=== PATIENT | female | born 1935 | race Caucasian/White ===

== ENCOUNTER 2018-03-11 10:58 | Inpatient (IN) | payer OTHER ==
--- NOTE | 2018-03-11 11:26 | PDOC ---
History of Present Illness - General Chief Complaint: Injury Stated Complaint: INJURY,FALL Time Seen by Provider: 03/11/18 11:26 - History of Present Illness Initial Comments: 03/11/18 12:20 Ms. Quiroga is an 82 yo female w/ no pmh who presents for evaluation of abdominal pain for the last day. She reports she had a mechanical fall yesterday (confirmed by daughter who is with her) and fell onto a chair; making contact with her RLQ. She denies any LOC or head injury. Ms. Quiroga was initially ok but reports she required tylenol before bed and pain has increased today; she also does not have any appetite now and reports this is unusual. The patient denies chest pain, shortness of breath, headache and dizziness. Denies fever, chills, nausea, vomit, diarrhea and constipation. Denies dysuria, frequency, urgency and hematuria. Allergies: NKDA Past History - Past Medical History Allergies/Adverse Reactions: Allergies Allergy/AdvReac Type Severity Reaction Status Date / Time No Known Allergies Allergy Verified 03/11/18 10:59 Home Medications: Ambulatory Orders NK [No Known Home Medication] 03/11/18 COPD: No - Surgical History Appendectomy: Yes - Suicide/Smoking/Psychosocial Hx Smoking History: Never smoked Have you smoked in the past 12 months: No Information on smoking cessation initiated: No Hx Alcohol Use: No Drug/Substance Use Hx: No Substance Use Type: None Review of Systems - Review of Systems Comments:: 03/11/18 12:25 GENERAL/CONSTITUTIONAL: No fever or chills. No weakness. HEAD, EYES, EARS, NOSE AND THROAT: No change in vision. No ear pain or discharge. No sore throat. CARDIOVASCULAR: No chest pain or shortness of breath RESPIRATORY: No cough, wheezing, or hemoptysis. GASTROINTESTINAL: +RLQ pain radiating to R flank. No nausea, vomiting, diarrhea or constipation. GENITOURINARY: No dysuria, frequency, or change in urination. MUSCULOSKELETAL: No joint or muscle swelling or pain. No neck or back pain. SKIN: No rash NEUROLOGIC: No headache, vertigo, loss of consciousness, or change in strength/ sensation. ENDOCRINE: No increased thirst. No abnormal weight change HEMATOLOGIC/LYMPHATIC: No anemia, easy bleeding, or history of blood clots. ALLERGIC/IMMUNOLOGIC: No hives or skin allergy. *Physical Exam - Vital Signs Last Vital Signs Temp Pulse Resp BP Pulse Ox 98.6 F 91 H 18 160/100 100 03/11/18 11:00 03/11/18 11:00 03/11/18 11:00 03/11/18 11:00 03/11/18 11:00 - Physical Exam Comments: 03/11/18 12:26 GENERAL: Awake, alert, and fully oriented, in no acute distress HEAD: No signs of trauma, normocephalic, atraumatic EYES: PERRLA, EOMI, sclera anicteric, conjunctiva clear ENT: Auricles normal inspection, hearing grossly normal, nares patent, oropharynx clear without exudates. Moist mucosa NECK: Normal ROM, supple, no lymphadenopathy, JVD, or masses LUNGS: No distress, speaks full sentences, clear to auscultation bilaterally HEART: Regular rate and rhythm, normal S1 and S2, no murmurs, rubs or gallops, peripheral pulses normal and equal bilaterally. ABDOMEN: +RLQ and flank TTP. Soft, normoactive bowel sounds. No guarding, no rebound. No masses EXTREMITIES: Normal inspection, Normal range of motion, no edema. No clubbing or cyanosis. NEUROLOGICAL: Cranial nerves II through XII grossly intact. Normal speech, normal gait, no focal sensorimotor deficits SKIN: Warm, Dry, normal turgor, no rashes or lesions noted. ED Treatment Course - LABORATORY CBC & Chemistry Diagram: 03/11/18 17:48 03/11/18 12:57 Medical Decision Making - Medical Decision Making 03/11/18 12:27 Ms. Quiroga is an 82 yo female w/ no pmh who presents for evaluation post fall. CT abdomen/pelvis sent for evaluation to evaluate for acute process. Tylenol / zofran given for symptomatic relief. 03/11/18 17:27 Patient reporting relief from pain with 2mg morphine. Labs significant for WBC of 15.9. Discussed with radiology who described possible R adrenal hematoma with hemorrhage in hepatorenal space. Surgery consulted. 03/11/18 17:39 Discussed patient with General Surgery (Dr. Escalante) who will evaluate in AM and would like patient admitted to hospitalist. PT/INR, PTT, Repeat CBC, lactate sent for further evaluation. Inpatient team paged for admission. 03/11/18 19:12 Patient admitted to hospital and ICU per Gen Surg request. Patient noted to have EKG suspicious for elevation in AVR w/ reciprical changes. Discussed with cardiology (Michele) who will evaluate. 03/11/18 19:14 Patient admitted for further evaluation. *DC/Admit/Observation/Transfer Diagnosis at time of Disposition: Hemoperitoneum - Discharge Dispostion Decision to Admit order: Yes - Referrals - Patient Instructions - Post Discharge Activity
[2018-03-11] MEDS ORDERED: ACETAMINOPHEN 500 MG TABLET (FP) PO ONE (11:40)
[2018-03-11] MEDS ORDERED: ONDANSETRON *ODT* 4 MG TABLET SL ONE (11:46)
[2018-03-11] MEDS ORDERED: ONDANSETRON *ODT* 4 MG TABLET ONE (11:52)
[2018-03-11 12:11] LABS: BASO % 0.3 % (0-2.0); HEMATOCRIT 45.9 % (32.4-45.2); HEMOGLOBIN 16.4 GM/dL (10.7-15.3); LYMPH % 5.6 % (8-40); MCH 32.1 pg (25.7-33.7); MCHC 35.7 g/dl (32.0-36.0); MEAN PLT VOLUME 10.2 fl (7.5-11.1); MONO % 5.5 % (3.8-10.2); NEUT % 88.6 % (42.8-82.8); PLATELET COUNT 150 K/MM3 (134-434); RDW 14.3 % (11.6-15.6); WHITE BLOOD COUNT 15.9 K/mm3 (4.0-10.0)
[2018-03-11] MEDS ORDERED: ACETAMINOPHEN 500 MG TABLET (FP) ONE (12:14)
[2018-03-11] MEDS ORDERED: morphine CARPU-JECT 2 MG/1 ML DISP.SYRIN IVPUSH ONE (13:36)
[2018-03-11] MEDS ORDERED: ONDANSETRON 4 MG/2 ML VIAL IVPUSH ONE (13:37)
[2018-03-11] MEDS ORDERED: ONDANSETRON 4 MG/2 ML VIAL ONE (13:39)
[2018-03-11] MEDS ORDERED: morphine SULFATE 4 MG/ML VIAL ONE (13:39)
[2018-03-11 13:46] LABS: ALBUMIN 4.5 g/dl (3.4-5.0); ALK PHOS 111 U/L (45-117); ANION GAP 16 (8-16); BILIRUBIN,TOTAL 1.1 mg/dL (0.2-1.0); BLOOD UREA NITROGEN 12 mg/dL (7-18); CALCIUM 9.7 mg/dL (8.5-10.1); CHLORIDE 97 mmol/L (98-107); CO2 25 mmol/L (21-32); CREATININE 0.7 mg/dL (0.55-1.02); GLUCOSE,RANDOM 130 mg/dL (74-106); POTASSIUM 4.1 mmol/L (3.5-5.1); SGOT/AST 46 U/L (15-37); SGPT/ALT 15 U/L (12-78); SODIUM 138 mmol/L (136-145); TOT PROT 8.1 g/dl (6.4-8.2)
--- NOTE | 2018-03-11 14:51 | PDOC ---
Attending Attestation - Medical Decision Making 03/11/18 17:44 EXAM: CT abdomen and pelvis with intravenous contrast HISTORY: Fall. Abdominal pain FINDINGS: There are mild atelectatic changes at the lung bases There is complex fluid in the hepatorenal space compatible with blood with hematoma versus mass of the right adrenal gland measuring 3.8 x 2.7 cm axially There are bilateral subcentimeter renal cortical hypodensities, likely cysts The upper abdominal visceral organs are otherwise unremarkable The gallbladder is surgically absent There is moderate fecal retention in the colon. Otherwise no gross abnormalities of the unenhanced small bowel and colon. The appendix is normal The urinary bladder is moderately distended, normal in contour without thickening. Correlate clinically to exclude bladder outlet obstruction Atrophic or absent uterus No intra-abdominal free air No acute osseous abnormalities Reported by: Teodoro Miranda MD <Jose E Norman - Last Filed: 03/11/18 17:44> - Resident Resident Name: Bobby Lopez - ED Attending Attestation I have performed the following: I have examined & evaluated the patient, The case was reviewed & discussed with the resident, I agree w/resident's findings & plan, Exceptions are as noted - HPI HPI: 03/11/18 14:34 "The patient is a 82 year old female, with no significant past medical history, who presents to the emergency department s/p mechanical fall yesterday. Pt states she fell onto her R side against the back of a chair. She denies any significant pain yesterday but today presents with worsening pain to the right lower quadrant abdomen. She reports taking Tylenol with minimal relief last night. She reports associated nausea without vomiting. She reports being able to ambulate post fall. Denies headstrike. Denies neck pain. She denies any loss of consciousness. She denies recent fevers, chills, headache or dizziness. She denies recent vomit, diarrhea or constipation. She denies recent dysuria, frequency, urgency or hematuria. She denies recent chest pain or shortness of breath. Allergies: NKA Past surgical history: None reported. Social history: Nonsmoker. Denies EtOH use and recreational drug use. Primary Care Physician: Dr. CmPhilip - Physicial Exam PE: 03/11/18 16:05 "GENERAL: Awake, alert, and fully oriented, in no acute distress. HEAD: No signs of trauma EYES: PERRLA, EOMI, sclera anicteric, conjunctiva clear ENT: Auricles normal inspection, hearing grossly normal, nares patent, oropharynx clear without exudates. Moist mucosa NECK: Nontender, no stepoffs, Normal ROM, supple, no lymphadenopathy, JVD, or masses LUNGS: Breath sounds equal, clear to auscultation bilaterally. No wheezes, and no crackles HEART: Regular rate and rhythm, normal S1 and S2, no murmurs, rubs or gallops ABDOMEN: + ecchymosis and tenderness to RLQ EXTREMITIES: Normal range of motion, no edema. No clubbing or cyanosis. No cords, erythema, or tenderness NEUROLOGICAL: Cranial nerves II through XII intact. 5/5 strength and sensation in all extremities, Normal speech, normal gait, normal cerebellar function SKIN: Warm, Dry, normal turgor, no rashes or lesions noted. " - Medical Decision Making 03/11/18 16:05 82 F with pain and bruising to RLQ after falling yesterday. Will need to r/o hemoperitoneum. Pt with no other signs of traumatic injury. - Labs - CTAP 03/11/18 17:29 CT shows blood in hepatorenal recess with hematoma to R adrenal gland. Repeat CBC and coags ordered. Surgery consulted for hemoperitoneum Pt admitted to hospitalist. 03/11/18 18:[address] Escalante, who recommends serial CBCs and ICU admission for close monitoring. No indication for OR at this time. Repeat CBC with 0.5u drop in Hb (prior to any fluids) Case discussed with Dr. Ching, who has accepted pt to ICU. 03/11/18 19:17 EKG obtained, revealing sub-mm ST elevation in aVR with depressions in lateral leads. Pt reassessed - denies ever having CP or SOB. Cardiac enzymes sent. Cards consulted. Holding aspirin and AC at this time 2/2 hemoperitoneum Admitting team informed of EKG at this time. <Aj Gallegos - Last Filed: 03/17/18 07:12> Attestations - Attestations 03/11/18 17:45 Documentation prepared by Jose E Norman, acting as general medical practitioner for Aj Gallegos MD. <Jose E Norman - Last Filed: 03/11/18 17:44>
[2018-03-11] MEDS ORDERED: SODIUM CHLORIDE 1,000 ML IV STA (17:40)
[2018-03-11 17:55] LABS: BASO % 0.3 % (0-2.0); HEMATOCRIT 46.1 % (32.4-45.2); HEMOGLOBIN 15.9 GM/dL (10.7-15.3); LYMPH % 6.7 % (8-40); MCH 31.5 pg (25.7-33.7); MCHC 34.4 g/dl (32.0-36.0); MEAN CELL VOLUME 91.5 fl (80-96); MEAN PLT VOLUME 10.9 fl (7.5-11.1); MONO % 6.9 % (3.8-10.2); NEUT % 86.1 % (42.8-82.8); PLATELET COUNT 127 K/MM3 (134-434); RBC 5.04 M/mm3 (3.60-5.2); RDW 13.9 % (11.6-15.6); WHITE BLOOD COUNT 16.7 K/mm3 (4.0-10.0)
[2018-03-11 18:09] LABS: INR 1.08 (0.82-1.09); PROTHROMBIN TIME (PATIENT) 12.2 SEC (9.7-13.0)
[2018-03-11 18:11] LABS: ACTIVATED PTT 29.6 SECONDS (26.9-34.4)
--- NOTE | 2018-03-11 18:47 | PN ---
Teaching Attending Note Name of Resident: Jasmyn Garcia ATTENDING PHYSICIAN STATEMENT I saw and evaluated the patient. I reviewed the resident's note and discussed the case with the resident. I agree with the resident's findings and plan as documented with exceptions below. SUBJECTIVE: 82 yof with no significant PMHx was walking with grand daughter when tripped and high right side of her abdomen to the cough. had been having right sided flank and right lower abdomen, dull, intermittent. Today had minimal po intake and was weak so was brought to the ED. Denies any dizziness, chest pain, palpitaitons, dyspnea, arm or jaw pain, urinary symptoms, blood in urine, bloody bowels or new concerns. currently with mild right flank and right upper abdomen discomfort but other unremarkable. OBJECTIVE: Vital Signs Period Temp Pulse Resp BP Sys/Horton Pulse Ox Last 24 Hr 98.1 F-98.6 F 77-91 17-18 160-194/78-100 98-100 Intake & Output 03/08/18 03/09/18 03/10/18 03/11/18 23:59 23:59 23:59 23:59 Weight 145 lb GENERAL: Awake, alert, and fully oriented, in no acute distress. HEAD: Normal with no signs of trauma. EYES: Pupils equal, round and reactive to light, extraocular movements intact, sclera anicteric, conjunctiva clear. No lid lag. EARS, NOSE, THROAT: Ears normal, nares patent, oropharynx clear without exudates. Moist mucous membranes. NECK: soft supple, no JVD LUNGS: Breath sounds equal, clear to auscultation bilaterally. No wheezes, and no crackles. No accessory muscle use. HEART: S1S2 regular ABDOMEN: Soft, tenderness in right upper abdomen and right CVA tenderness, no voluntary or involuntary guarding or rigidity, positive bowel sounds MUSCULOSKELETAL: Normal range of motion at all joints. No bony deformities or tenderness. No CVA tenderness. UPPER EXTREMITIES: 2+ pulses, warm, well-perfused. No cyanosis. No clubbing. No peripheral edema. LOWER EXTREMITIES: 2+ pulses, warm, well-perfused. No calf tenderness. No peripheral edema. NEUROLOGICAL: Cranial nerves II-XII intact. Normal speech. PSYCHIATRIC: Cooperative. Good eye contact. Appropriate mood and affect. SKIN: Warm, dry, normal turgor, no rashes or lesions noted, normal capillary refill. Home Medication List Medication Instructions Recorded Confirmed Type NK [No Known Home Medication] 03/11/18 03/11/18 History Active Medications Generic Name Dose Route Start Last Admin Trade Name Papito PRN Reason Stop Dose Admin Chlorhexidine Gluconate 1 applic 03/11/18 22:00 Hibiclens For Decolonization - TP HS SANIA Mupirocin 1 applic 03/11/18 22:00 Bactroban Ointment (For Decolonization) - NS 03/16/18 21:59 BID SANIA Laboratory Results - last 24 hr 03/11/18 03/11/18 03/11/18 12:00 12:00 12:00 WBC 15.9 H RBC 5.10 Hgb 16.4 H Hct 45.9 H MCV 90.0 MCH 32.1 MCHC 35.7 RDW 14.3 Plt Count 150 MPV 10.2 Neutrophils % 88.6 H Lymphocytes % 5.6 L Monocytes % 5.5 Eosinophils % 0.0 Basophils % 0.3 PT with INR INR PTT (Actin FS) Sodium Cancelled Potassium Cancelled Chloride Cancelled Carbon Dioxide Cancelled Anion Gap Cancelled BUN Cancelled Creatinine Cancelled Creat Clearance w eGFR Cancelled Random Glucose Cancelled Calcium Cancelled Total Bilirubin Cancelled AST Cancelled ALT Cancelled Alkaline Phosphatase Cancelled Total Protein Cancelled Albumin Cancelled Lipase Blood Type Cancelled Antibody Screen Cancelled 03/11/18 03/11/18 03/11/18 12:43 12:57 12:57 WBC RBC Hgb Hct MCV MCH MCHC RDW Plt Count MPV Neutrophils % Lymphocytes % Monocytes % Eosinophils % Basophils % PT with INR INR PTT (Actin FS) Sodium 138 Potassium 4.1 Chloride 97 L Carbon Dioxide 25 Anion Gap 16 BUN 12 Creatinine 0.7 Creat Clearance w eGFR > 60 Random Glucose 130 H Calcium 9.7 Total Bilirubin 1.1 H AST 46 H ALT 15 Alkaline Phosphatase 111 Total Protein 8.1 Albumin 4.5 Lipase 95 Blood Type O POSITIVE Antibody Screen Negative 03/11/18 03/11/18 03/11/18 15:34 17:48 17:48 WBC 16.7 H RBC 5.04 Hgb 15.9 H Hct 46.1 H MCV 91.5 MCH 31.5 MCHC 34.4 RDW 13.9 Plt Count 127 L MPV 10.9 Neutrophils % 86.1 H Lymphocytes % 6.7 L Monocytes % 6.9 Eosinophils % 0.0 Basophils % 0.3 PT with INR 12.20 INR 1.08 PTT (Actin FS) 29.6 Sodium Potassium Chloride Carbon Dioxide Anion Gap BUN Creatinine Creat Clearance w eGFR Random Glucose Calcium Total Bilirubin AST ALT Alkaline Phosphatase Total Protein Albumin Lipase Blood Type O POSITIVE Antibody Screen CT A/P- read per ED FINDINGS: There are mild atelectatic changes at the lung bases There is complex fluid in the hepatorenal space compatible with blood with hematoma versus mass of the right adrenal gland measuring 3.8 x 2.7 cm axially There are bilateral subcentimeter renal cortical hypodensities, likely cysts The upper abdominal visceral organs are otherwise unremarkable The gallbladder is surgically absent There is moderate fecal retention in the colon. Otherwise no gross abnormalities of the unenhanced small bowel and colon. The appendix is normal The urinary bladder is moderately distended, normal in contour without thickening. Correlate clinically to exclude bladder outlet obstruction Atrophic or absent uterus No intra-abdominal free air No acute osseous abnormalities EKG NSR, QS in V1-V2, ST depressions in V3-V6, ASSESSMENT AND PLAN: 82 yof with traumatic Right adrenal hematoma vs mass of adrenal gland and hypertensive urgency. -Likely traumatic right adrenal hematoma, low suspcion for adrenal mass -Hypertensive urgency -Abnormal EKG Plan: Surgery consulted with Dr. Escalante, recommend ICU monitoring. Serial abdominal exams. repeat h/h later today. Monitor hemodynamics. Follow up official CT A/P read. Suspect underlying undiagnosed HTN, now with pain. Pain control with low dose morphine and labetalol prn. No prior EKG, patient with no chest pain or concerning symptoms. Check cardiac enzymes. check 2D echo. cardiology input based on clinical course. DVTPPx with SCDs Plan discussed with patient and grand daughter in detail, all questions answered. total critical care time spent 60 min.
--- NOTE | 2018-03-11 19:12 | CON.CARD ---
Consult Consult Specialty:: Cardiology Reason for Consultation:: s/p fall positive tnis - History of Present Illness History of Present Illness: Ms. Quiroga is an 82 yo female w/ no pmh who presents for evaluation of abdominal pain for the last day. She reports she had a mechanical fall yesterday (confirmed by daughter who is with her) and fell onto a chair; making contact with her RLQ. She denies any LOC or head injury. Ms. Quiroga was initially ok but reports she required tylenol before bed and pain has increased today; she also does not have any appetite now and reports this is unusual. The patient denies chest pain, shortness of breath, headache and dizziness. Denies fever, chills, nausea, vomit, diarrhea and constipation. Denies dysuria, frequency, urgency and hematuria. Allergies: NKDA 82 abraham with no significant PMHx has no PCP and takes no home meds who was brought in by granddaughter with c/o increasing rt abd pain after a mechanical fall at home. As per family pt lost balance at home and hit her rt flank on couch. There was no report of LOC, dizziness, lightheadedness, chest pain, SOB, fever, chills. No head trauma. The patient then complained of intermittent sharp pain right sided pain radiating to the back, 6/10 which was relieved by tylenol. Pt was brought in the next day with worsening abd pain and loss of appetite. In the ED T 98.6, HR 91, RR 18 BP 160/100, O2 sat 100% 0n room air. She had two small episodes of non bilious non bloody emesis. Labs notable for WBC 16.7,H/H 15.9/46.1, trop0.5->0.68, lactate 2.[address] depressions in V3-V6. CT abd pelvis preliminary read c/f fluid collection vs mass near rt adrenal. Surgery and cardiology was consulted. Recommended ICU monitoring for intra-abd bleed and ACS. Pt was transferred to ICU. In the ICU A+Ox3, HR 69, BP 178/80, O2sat 97% on room air. C/o Rt chest pain and Rt flank pain 5/10 relieved by Morphine IV. No bruising, no abd tenderness or mass noted on exam. No c/o abd pain. Granddaughter states pt lives with her, has some memory loss but is independent of ADLs. - History Source History Provided By: Patient, Medical Record - Alcohol/Substance Use Hx Alcohol Use: No - Smoking History Smoking history: Never smoked Have you smoked in the past 12 months: No Home Medications - Allergies Allergies/Adverse Reactions: Allergies Allergy/AdvReac Type Severity Reaction Status Date / Time No Known Allergies Allergy Verified 03/11/18 10:59 - Home Medications Home Medications: Ambulatory Orders NK [No Known Home Medication] 03/11/18 Review of Systems - Review of Systems Constitutional: reports: No Symptoms Eyes: reports: No Symptoms HENT: reports: No Symptoms Neck: reports: No Symptoms Cardiovascular: reports: No Symptoms Gastrointestinal: reports: Abdominal Pain Genitourinary: reports: No Symptoms Breasts: reports: No Symptoms Reported Musculoskeletal: reports: No Symptoms Integumentary: reports: No Symptoms Neurological: reports: No Symptoms Endocrine: reports: No Symptoms Hematology/Lymphatic: reports: No Symptoms Psychiatric: reports: No Symptoms Vital Signs: Vital Signs Temperature 98.1 F 03/11/18 16:59 Pulse Rate 78 03/11/18 16:59 Respiratory Rate 17 03/11/18 16:59 Blood Pressure 177/78 03/11/18 16:59 O2 Sat by Pulse Oximetry (%) 98 03/11/18 16:59 Constitutional: Yes: Well Nourished, No Distress, Calm Eyes: Yes: WNL, Conjunctiva Clear, EOM Intact HENT: Yes: WNL, Atraumatic, Normocephalic Neck: Yes: WNL, Supple, Trachea Midline Respiratory: Yes: WNL, Regular, CTA Bilaterally Gastrointestinal: Yes: WNL, Normal Bowel Sounds Renal/: Yes: WNL Cardiovascular: Yes: WNL, Regular Rate and Rhythm Musculoskeletal: Yes: WNL Extremities: Yes: WNL Integumentary: Yes: WNL Neurological: Yes: WNL, Alert, Oriented ...Motor Strength: WNL Psychiatric: Yes: WNL, Alert, Oriented - Other Data Labs, Other Data: CBC, BMP 03/11/18 17:48 03/11/18 12:57 INR, PTT INR 1.08 (0.82-1.09) 03/11/18 17:48 Imaging - Results Chest X-ray: Pending EKG: Image Reviewed (sr inf lat st depressions) Problem List - Problems (1) Elevated troponin Code(s): R74.8 - ABNORMAL LEVELS OF OTHER SERUM ENZYMES (2) Fall from ground level Code(s): W18.30XA - FALL ON SAME LEVEL, UNSPECIFIED, INITIAL ENCOUNTER (3) Hemoperitoneum Code(s): K66.1 - HEMOPERITONEUM (4) Memory impairment Code(s): R41.3 - OTHER AMNESIA Assessment/Plan adrenal hematoma s/p trauma r/o retroperitoneal bleed lactic acidosis abn ekg ? LVH hypertensive heart ds vs ischemia mildly elevated tnis no cp htn plan f/u ekg icu monitoring bb bp control cc time spent 70 min
[2018-03-11] MEDS ORDERED: METOPROLOL TARTRATE 5 MG/5 ML VIAL IVPUSH PRN (19:21)
--- NOTE | 2018-03-11 20:05 | HP ---
CHIEF COMPLAINT: abdominal pain PCP: None HISTORY OF PRESENT ILLNESS: The patient is a 82 year old female with no significant PMH who presented to the hospital accompanied by her granddaughter s/p fall yesterday evening. The patient was walking at home, when she tripped and fell on the couch, hitting the right side of her abdomen. Her granddaughter witnessed the fall and states that she didn't hit her head or had seizures, LOC. The patient started complaining of intermittent sharp pain, on the right side, radiating to the back , 04/09. Her granddaughter gave her Tylenol but today noticed that she didn't have appetite and brought her to the hospital. After she came to ED she had two small episodes of non bilious no bloody vomiting. History is taken partially from the patient and granddaughter. The patient denies dizziness, chest pain, SOB, palpitations, headache, seizures. The patient doesn't have PCP and doesn't take any medications at home. ER course was notable for: (1)EKG (2)CT abdomen (3)CBC WBC 15.9 PAST MEDICAL HISTORY: memory impairment, fibroids PAST SURGICAL HISTORY: hysterectomy, cholecystectomy, tubal ligation, right knee surgery Social History: Smoking:denies Alcohol:denies Drugs: denies Family History: Mother: cancer Father: heart disease. She lives with her granddaughter, ambulating without walker/cane. Allergies No Known Allergies Allergy (Verified 03/11/18 10:59) HOME MEDICATIONS: Home Medications Medication Instructions Recorded NK [No Known Home Medication] 03/11/18 REVIEW OF SYSTEMS CONSTITUTIONAL: Absent: fever, chills, diaphoresis, generalized weakness, malaise, loss of appetite, weight change HEENT: Absent: rhinorrhea, nasal congestion, throat pain, throat swelling, difficulty swallowing, mouth swelling CARDIOVASCULAR: Absent: chest pain, syncope, palpitations, irregular heart rate, lightheadedness , peripheral edema RESPIRATORY: Absent: cough, shortness of breath, dyspnea with exertion, orthopnea, wheezing, GASTROINTESTINAL:abdominal pain Absent: abdominal distension, nausea, vomiting, diarrhea, constipation, melena, hematochezia GENITOURINARY: Absent: dysuria, frequency, urgency, hesitancy, hematuria, flank pain, genital pain MUSCULOSKELETAL: Absent: myalgia, arthralgia, joint swelling, back pain, neck pain SKIN: Absent: rash ENDOCRINE: Absent: unexplained weight gain, unexplained weight loss, heat intolerance, cold intolerance NEUROLOGIC: Absent: headache, focal weakness or paresthesias, dizziness, unsteady gait, seizure, mental status changes PSYCHIATRIC: Absent: anxiety, depression PHYSICAL EXAMINATION Vital Signs - 24 hr 03/11/18 03/11/18 03/11/18 11:00 13:45 14:18 Temperature 98.6 F Pulse Rate 91 H Pulse Rate [ 77 Right Radial] Respiratory 18 18 Rate Blood Pressure 160/100 Blood Pressure 194/89 179/83 [Left Arm] O2 Sat by Pulse 100 98 Oximetry (%) 03/11/18 16:59 Temperature 98.1 F Pulse Rate Pulse Rate [ 78 Right Radial] Respiratory 17 Rate Blood Pressure Blood Pressure 177/78 [Left Arm] O2 Sat by Pulse 98 Oximetry (%) GENERAL: Awake, alert, and fully oriented, in no acute distress. HEAD: Normal with no signs of trauma. EYES: Pupils equal, round and reactive to light, extraocular movements intact, sclera anicteric, conjunctiva clear. EARS, NOSE, THROAT: Ears normal, nares patent, oropharynx clear without exudates. Moist mucous membranes. NECK: Normal range of motion, supple without lymphadenopathy, JVD, or masses. LUNGS: Breath sounds equal, clear to auscultation bilaterally. No wheezes, and no crackles. No accessory muscle use. HEART: Regular rate and rhythm, normal S1 and S2 without murmur, rub or gallop. ABDOMEN: Soft, tender to palpation in RLQ, not distended, normoactive bowel sounds, no guarding, no rebound, no masses. MUSCULOSKELETAL: Normal range of motion at all joints. No bony deformities or tenderness. CVA tenderness on right side. UPPER EXTREMITIES: 2+ pulses, warm, no peripheral edema. LOWER EXTREMITIES: 2+ pulses, no peripheral edema. NEUROLOGICAL: No facial asymmetry, motor 5/5 in all extremities, sensation intact. PSYCHIATRIC: Cooperative. Good eye contact. Appropriate mood and affect. SKIN: Warm, dry, normal turgor, no rashes or lesions noted. Laboratory Results - last 24 hr 03/11/18 03/11/18 03/11/18 12:00 12:00 12:00 WBC 15.9 H RBC 5.10 Hgb 16.4 H Hct 45.9 H MCV 90.0 MCH 32.1 MCHC 35.7 RDW 14.3 Plt Count 150 MPV 10.2 Neutrophils % 88.6 H Lymphocytes % 5.6 L Monocytes % 5.5 Eosinophils % 0.0 Basophils % 0.3 PT with INR INR PTT (Actin FS) Sodium Cancelled Potassium Cancelled Chloride Cancelled Carbon Dioxide Cancelled Anion Gap Cancelled BUN Cancelled Creatinine Cancelled Creat Clearance w eGFR Cancelled Random Glucose Cancelled Calcium Cancelled Total Bilirubin Cancelled AST Cancelled ALT Cancelled Alkaline Phosphatase Cancelled Creatine Kinase Troponin I Total Protein Cancelled Albumin Cancelled Lipase Blood Type Cancelled Antibody Screen Cancelled 03/11/18 03/11/18 03/11/18 12:43 12:57 12:57 WBC RBC Hgb Hct MCV MCH MCHC RDW Plt Count MPV Neutrophils % Lymphocytes % Monocytes % Eosinophils % Basophils % PT with INR INR PTT (Actin FS) Sodium 138 Potassium 4.1 Chloride 97 L Carbon Dioxide 25 Anion Gap 16 BUN 12 Creatinine 0.7 Creat Clearance w eGFR > 60 Random Glucose 130 H Calcium 9.7 Total Bilirubin 1.1 H AST 46 H ALT 15 Alkaline Phosphatase 111 Creatine Kinase Troponin I Total Protein 8.1 Albumin 4.5 Lipase 95 Blood Type O POSITIVE Antibody Screen Negative 03/11/18 03/11/18 03/11/18 12:57 15:34 17:48 WBC 16.7 H RBC 5.04 Hgb 15.9 H Hct 46.1 H MCV 91.5 MCH 31.5 MCHC 34.4 RDW 13.9 Plt Count 127 L MPV 10.9 Neutrophils % 86.1 H Lymphocytes % 6.7 L Monocytes % 6.9 Eosinophils % 0.0 Basophils % 0.3 PT with INR INR PTT (Actin FS) Sodium Potassium Chloride Carbon Dioxide Anion Gap BUN Creatinine Creat Clearance w eGFR Random Glucose Calcium Total Bilirubin AST ALT Alkaline Phosphatase Creatine Kinase Cancelled Troponin I Cancelled Total Protein Albumin Lipase Blood Type O POSITIVE Antibody Screen 03/11/18 17:48 WBC RBC Hgb Hct MCV MCH MCHC RDW Plt Count MPV Neutrophils % Lymphocytes % Monocytes % Eosinophils % Basophils % PT with INR 12.20 INR 1.08 PTT (Actin FS) 29.6 Sodium Potassium Chloride Carbon Dioxide Anion Gap BUN Creatinine Creat Clearance w eGFR Random Glucose Calcium Total Bilirubin AST ALT Alkaline Phosphatase Creatine Kinase Troponin I Total Protein Albumin Lipase Blood Type Antibody Screen ASSESSMENT/PLAN: 82 year old female with no significant PMG presented s/p fall, abdominal pain one day ago and is admitted for internal bleeding. s/p fall: -CT abdomen/pelvis visiualized complex fluid in the hepatorenal space compatible with blood with hematoma versus mass of the right adrenal gland measuring 3.8 x 2.7 cm axially-report from Imaging media production operator, still waiting for official read. -Surgery-Dr Escalante was consulted and recommended to monitor the patient in ICU overnight with monitoring H/H -will continue IVF: D5 NS at 75 ml/hr -will continue with pain control: Morphine 2 mg Q4H PRN -elevated LA to 2.5, will follow Hypertensive urgency: -possibly due to pain, Morphine -not on any home meds -BP elevated to 194/89. -will continue Lopressor 10 mg Q6H PRN EKG changes: -the patientt had st depression in v1-v3 -possible LVH -orsered troponins and ekg every 6 h Bladder obstruction: -not complaining of any dysuria, based on CT preliminary read -will monitor -bladder scan ordered Leukocytosis: -WBC 15.9 -will monitor for signs of infections DVT PPX: -scds no Heparin F/E/N: D5NS/no changes/NPO Disposition: ICU monitoring Discussed with Dr Acosta Problem List - Problem (1) Memory impairment Code(s): R41.3 - OTHER AMNESIA (2) Hemoperitoneum Code(s): K66.1 - HEMOPERITONEUM Visit type - Emergency Visit Emergency Visit: Yes ED Registration Date: 03/11/18 Care time: The patient presented to the Emergency Department on the above date and was hospitalized for further evaluation of their emergent condition. - New Patient This patient is new to me today: Yes Date on this admission: 03/11/18 - Critical Care Critical Care patient: Yes Total Critical Care Time (in minutes): 35 Critical Care Statement: The care of this patient involved high complexity decision making to prevent further life threatening deterioration of the patient 's condition and/or to evaluate & treat vital organ system(s) failure or risk of failure. Hospitalist Screening - Colonoscopy Questionnaire Colonoscopy Questionnaire: Colonoscopy Questionnaire - Patient: 50 - 75 years old and never had a screening colonoscopy: No History of colon or rectal polyps, or CA: No History of IBD, Crohn's disease or UC: No History of abdominal radiation therapy as a child: No - Relative: 1 with colon or rectal CA, or polyps at age 60 or younger: No Colon or rectal CA diagnosed at age 45 or younger: No Multiple relatives with colon or rectal CA: No - Outcome: Screening Result: Negative Screen
[2018-03-11] MEDS ORDERED: METOPROLOL TARTRATE 5 MG/5 ML VIAL IVPUSH ONE ×2 (20:37→20:54)
--- NOTE | 2018-03-11 20:46 | CONSULT ---
Consult Consult Specialty:: Pulm/CCM Reason for Consultation:: Mechanical fall; abd fluid collection c/f hemoperitonium - History of Present Illness Chief Complaint: Rt flank pain History of Present Illness: 82 abraham with no significant PMHx has no PCP and takes no home meds who was brought in by granddaughter with c/o increasing rt abd pain after a mechanical fall at home. As per family pt lost balance at home and hit her rt flank on couch. There was no report of LOC, dizziness, lightheadedness, chest pain, SOB, fever, chills. No head trauma. The patient then complained of intermittent sharp pain right sided pain radiating to the back, 6/10 which was relieved by tylenol. Pt was brought in the next day with worsening abd pain and loss of appetite. In the ED T 98.6, HR 91, RR 18 BP 160/100, O2 sat 100% 0n room air. She had two small episodes of non bilious non bloody emesis. Labs notable for WBC 16.7,H/H 15.9/46.1, trop0.5->0.68, lactate 2.[address] depressions in V3-V6. CT abd pelvis preliminary read c/f fluid collection vs mass near rt adrenal. Surgery and cardiology was consulted. Recommended ICU monitoring for intra-abd bleed and ACS. Pt was transferred to ICU. In the ICU A+Ox3, HR 69, BP 178/80, O2sat 97% on room air. C/o Rt chest pain and Rt flank pain 5/10 relieved by Morphine IV. No bruising, no abd tenderness or mass noted on exam. No c/o abd pain. Granddaughter states pt lives with her, has some memory loss but is independent of ADLs. - History Source History Provided By: Patient, Medical Record Limitations to Obtaining History: No Limitations - Past Medical History GENERAL MANAGER FOOD: Yes: Dementia, Other (mild dementia-memory loss) - Alcohol/Substance Use Hx Alcohol Use: No - Smoking History Smoking history: Never smoked Have you smoked in the past 12 months: No - Social History Usual Living Arrangement: With Child ADL: Independent Home Medications - Allergies Allergies/Adverse Reactions: Allergies Allergy/AdvReac Type Severity Reaction Status Date / Time No Known Allergies Allergy Verified 03/11/18 10:59 - Home Medications Home Medications: Ambulatory Orders NK [No Known Home Medication] 03/11/18 Review of Systems - Review of Systems Constitutional: reports: No Symptoms Eyes: reports: No Symptoms HENT: reports: No Symptoms Neck: reports: No Symptoms Cardiovascular: reports: No Symptoms Respiratory: reports: No Symptoms Gastrointestinal: reports: No Symptoms Genitourinary: reports: No Symptoms Musculoskeletal: reports: Back Pain (Rt flank pain) Integumentary: reports: No Symptoms Neurological: reports: No Symptoms Endocrine: reports: No Symptoms Hematology/Lymphatic: reports: No Symptoms Psychiatric: reports: No Symptoms Physical Exam Vital Signs: Vital Signs Temperature 98.3 F 03/11/18 18:00 Pulse Rate 74 03/11/18 20:15 Respiratory Rate 17 03/11/18 20:15 Blood Pressure 189/77 03/11/18 20:15 O2 Sat by Pulse Oximetry (%) 97 03/11/18 20:15 Constitutional: Yes: Well Nourished, No Distress, Calm Eyes: Yes: WNL, PERRL HENT: Yes: Atraumatic, Normocephalic Neck: Yes: Supple, Trachea Midline Cardiovascular: Yes: Regular Rate and Rhythm, S1, S2 Respiratory: Yes: WNL, Regular, CTA Bilaterally Gastrointestinal: Yes: Normal Bowel Sounds, Soft Renal/: Yes: WNL Musculoskeletal: Yes: Back Pain, Other (Rt flank pain) Edema: No Peripheral Pulses WNL: Yes Integumentary: Yes: WNL Neurological: Yes: Alert, Oriented, Cran Nerves II-XII Intact ...Motor Strength: WNL Psychiatric: Yes: Alert, Oriented Labs: CBC, BMP 03/11/18 17:48 03/11/18 12:57 CBC,CMP WBC 16.7 K/mm3 (4.0-10.0) H 03/11/18 17:48 RBC 5.04 M/mm3 (3.60-5.2) 03/11/18 17:48 Hgb 15.9 GM/dL (10.7-15.3) H 03/11/18 17:48 Hct 46.1 % (32.4-45.2) H 03/11/18 17:48 MCV 91.5 fl (80-96) 03/11/18 17:48 MCH 31.5 pg (25.7-33.7) 05/12/18 17:48 MCHC 34.4 g/dl (32.0-36.0) 03/11/18 17:48 RDW 13.9 % (11.6-15.6) 03/11/18 17:48 Plt Count 127 K/MM3 (134-434) L 03/11/18 17:48 MPV 10.9 fl (7.5-11.1) 03/11/18 17:48 Neutrophils % 86.1 % (42.8-82.8) H 03/11/18 17:48 Lymphocytes % 6.7 % (8-40) L 03/11/18 17:48 Monocytes % 6.9 % (3.8-10.2) 03/11/18 17:48 Eosinophils % 0.0 % (0-4.5) 03/11/18 17:48 Basophils % 0.3 % (0-2.0) 03/11/18 17:48 Sodium 138 mmol/L (136-145) 03/11/18 12:57 Potassium 4.1 mmol/L (3.5-5.1) 03/11/18 12:57 Chloride 97 mmol/L (98-107) L 03/11/18 12:57 Carbon Dioxide 25 mmol/L (21-32) 03/11/18 12:57 Anion Gap 16 (8-16) 03/11/18 12:57 BUN 12 mg/dL (7-18) 03/11/18 12:57 Creatinine 0.7 mg/dL (0.55-1.02) 03/11/18 12:57 Creat Clearance w eGFR > 60 (>60) 03/11/18 12:57 Random Glucose 130 mg/dL (74-106) H 03/11/18 12:57 Lactic Acid 2.5 mmol/L (0.0-2.0) H* 03/11/18 18:30 Calcium 9.7 mg/dL (8.5-10.1) 03/11/18 12:57 Total Bilirubin 1.1 mg/dL (0.2-1.0) H 03/11/18 12:57 AST 46 U/L (15-37) H 03/11/18 12:57 ALT 15 U/L (12-78) 03/11/18 12:57 Alkaline Phosphatase 111 U/L (45-117) 03/11/18 12:57 Creatine Kinase 88 IU/L (26-192) 03/11/18 12:57 Troponin I 0.68 ng/ml (0.00-0.05) H* 03/11/18 20:01 Total Protein 8.1 g/dl (6.4-8.2) 03/11/18 12:57 Albumin 4.5 g/dl (3.4-5.0) 03/11/18 12:57 Lipase 95 U/L (73-393) 03/11/18 12:57 Current Medications Chlorhexidine Gluconate (Hibiclens For Decolonization -) 1 applic TP HS [facility] Last Admin: 03/11/18 22:05 Dose: 1 applic Dextrose/Sodium Chloride (D5-Ns -) 1,000 mls @ 75 mls/hr IV ASDIR [facility] Stop: 03/13/18 08:49 Last Admin: 03/11/18 22:04 Dose: 75 mls/hr Metoprolol Tartrate (Lopressor Injection -) 10 mg IVPUSH Q6H PRN PRN Reason: HYPERTENSION Morphine Sulfate (Morphine Sulfate) 2 mg IVPUSH Q4H PRN PRN Reason: PAIN LEVEL 1-5 Last Admin: 03/11/18 21:51 Dose: 2 mg Mupirocin (Bactroban Ointment (For Decolonization) -) 1 applic NS BID [facility] Stop: 03/16/18 21:59 Last Admin: 03/11/18 22:04 Dose: 1 drop Imaging - Results Cat Scan: Pending Problem List - Problems (1) Elevated troponin Code(s): R74.8 - ABNORMAL LEVELS OF OTHER SERUM ENZYMES (2) Fall from ground level Code(s): W18.30XA - FALL ON SAME LEVEL, UNSPECIFIED, INITIAL ENCOUNTER (3) Hemoperitoneum Code(s): K66.1 - HEMOPERITONEUM (4) Memory impairment Code(s): R41.3 - OTHER AMNESIA Assessment/Plan 82yow with mild dementia admitted to ICU with NSTEMI in the setting of hypertensive urgency m/l 2/2 rt flank pain after a fall at home. CT scan c/f hematoma vs mass on rt adrenal. Also with elevated WBC; no infectious prodrome. Surgery and cardiology consulted. Pt does not have a PCP. Unclear cardiac history. Plan: -Repeat CT in am to assess mass -Trend CBC q6 -HD monitoring -Pain management with morphine -TTE in am -Trop and ECG q8 -Hold anticoagulation for now. -Lopressor BID as per cards for SBP 140-160 -Monitor BMP and UOP -Replete electrolytes -NC O2 prn for O2 sat>92%. -Trend temps and WBC; no indication for antibiotics at this time -DVT prophylaxis Caroline Anthony, JAYDAP CC time 35mins
--- NOTE | 2018-03-11 20:49 | PDOC ---
*Physical Exam - Vital Signs Last Vital Signs Temp Pulse Resp BP Pulse Ox 98.3 F 74 17 189/77 97 03/11/18 18:00 03/11/18 20:15 03/11/18 20:15 03/11/18 20:15 03/11/18 20:15 Care endorsed to me by Dr. Lopez at the end of his shift. Patient is an 82 YOF who suffered a GLF yesterday with physical trauma to the abdomen, acute worsening of abdominal pain today, on imaging has findings concerning for hemoperitoneum. Also concerning EKG changes. Patient is already admitted. Will need repeat troponin at 2130 as first was 0.50. ED Treatment Course - LABORATORY CBC & Chemistry Diagram: 03/11/18 17:48 03/11/18 12:57 - ADDITIONAL ORDERS Additional order review: Laboratory Results 03/11/18 03/11/18 03/11/18 17:48 15:34 12:57 PT with INR 12.20 INR 1.08 PTT (Actin FS) 29.6 Sodium Potassium Chloride Carbon Dioxide Anion Gap BUN Creatinine Creat Clearance w eGFR Random Glucose Calcium Total Bilirubin AST ALT Alkaline Phosphatase Creatine Kinase 88 Troponin I 0.50 H Total Protein Albumin Lipase Blood Type O POSITIVE Antibody Screen 03/11/18 03/11/18 03/11/18 12:57 12:57 12:43 PT with INR INR PTT (Actin FS) Sodium 138 Potassium 4.1 Chloride 97 L Carbon Dioxide 25 Anion Gap 16 BUN 12 Creatinine 0.7 Creat Clearance w eGFR > 60 Random Glucose 130 H Calcium 9.7 Total Bilirubin 1.1 H AST 46 H ALT 15 Alkaline Phosphatase 111 Creatine Kinase Troponin I Total Protein 8.1 Albumin 4.5 Lipase 95 Blood Type O POSITIVE Antibody Screen Negative 03/11/18 03/11/18 12:00 12:00 PT with INR INR PTT (Actin FS) Sodium Cancelled Potassium Cancelled Chloride Cancelled Carbon Dioxide Cancelled Anion Gap Cancelled BUN Cancelled Creatinine Cancelled Creat Clearance w eGFR Cancelled Random Glucose Cancelled Calcium Cancelled Total Bilirubin Cancelled AST Cancelled ALT Cancelled Alkaline Phosphatase Cancelled Creatine Kinase Troponin I Total Protein Cancelled Albumin Cancelled Lipase Blood Type Cancelled Antibody Screen Cancelled 03/11/18 03/11/18 17:48 12:00 RBC 5.04 5.10 MCV 91.5 90.0 MCHC 34.4 35.7 RDW 13.9 14.3 MPV 10.9 10.2 Neutrophils % 86.1 H 88.6 H Lymphocytes % 6.7 L 5.6 L Monocytes % 6.9 5.5 Eosinophils % 0.0 0.0 Basophils % 0.3 0.3 - Medications Given in the ED: ED Medications Discontinued Medications Generic Name Dose Route Start Last Admin Trade Name Papito PRN Reason Stop Dose Admin Acetaminophen 1,000 mg 03/11/18 11:40 03/11/18 12:16 Tylenol - PO 03/11/18 11:41 1,000 mg ONCE ONE Administration Sodium Chloride 1,000 mls @ 1,000 mls/hr 03/11/18 17:40 03/11/18 18:51 Normal Saline - IV 03/11/18 18:39 1,000 mls/hr ASDIR STA Administration Morphine Sulfate 2 mg 03/11/18 13:36 03/11/18 13:46 Morphine Injection - IVPUSH 03/11/18 13:37 2 mg ONCE ONE Administration Ondansetron HCl 4 mg 03/11/18 11:46 03/11/18 12:00 Zofran Odt - SL 03/11/18 11:47 4 mg ONCE ONE Administration Ondansetron HCl 4 mg 03/11/18 13:37 03/11/18 13:46 Zofran Injection IVPUSH 03/11/18 13:38 4 mg ONCE ONE Administration Medical Decision Making - Medical Decision Making 03/11/18 20:[address] Barboza about initial troponin of 0.50. He recommends repeat troponin, 25 mg Lopressor bid. Ordered is 5 mg IVPUSH Lopressor as patient remains hypertensive. Troponin increased from 0.50 to 0.60. *DC/Admit/Observation/Transfer Diagnosis at time of Disposition: Hemoperitoneum, Elevated troponin, Fall from ground level - Discharge Dispostion Condition at time of disposition: Guarded Decision to Admit order: Yes - Referrals - Patient Instructions - Post Discharge Activity
[2018-03-11] MEDS: morphine SULFATE 4 MG/ML VIAL IVPUSH PRN (21:51)
[2018-03-11] MEDS ORDERED: METOPROLOL TARTRATE 25 MG TABLET (FP) PO SCH (22:00)
[2018-03-11] MEDS: MUPIROCIN 2% TOPICAL OINTMENT FOR DECOLONIZATION NS SCH (22:04)
[2018-03-11] MEDS: DEXTROSE 5%-NORMAL SALINE 1,000 ML IV SCH (22:04)
[2018-03-11] MEDS: CHLORHEXIDINE GLUCONATE 4% CLEANSER FOR DECOLONIZATION TP SCH (22:05)
[2018-03-11 23:18] VITALS: BMI 21.4
[2018-03-12 00:17] LABS: HEMATOCRIT 41.6 % (32.4-45.2); HEMOGLOBIN 14.7 GM/dL (10.7-15.3); MCH 32.1 pg (25.7-33.7); MCHC 35.4 g/dl (32.0-36.0); MEAN CELL VOLUME 90.6 fl (80-96); PLATELET COUNT 118 K/MM3 (134-434); RBC 4.59 M/mm3 (3.60-5.2); WHITE BLOOD COUNT 13.8 K/mm3 (4.0-10.0)
[2018-03-12] MEDS: METOPROLOL TARTRATE 25 MG TABLET (FP) PO SCH ×3 (00:17→21:08)
[2018-03-12 00:54] LABS: PHOSPHOROUS 3.5 mg/dL (2.5-4.9)
[2018-03-12 00:56] LABS: MAGNESIUM 2.2 mg/dL (1.8-2.4)
[2018-03-12] MEDS ORDERED: hydrALAZINE HCL 20 MG/ML VIAL ONE (01:25)
[2018-03-12] MEDS ORDERED: hydrALAZINE HCL 20 MG/ML VIAL IVPUSH ONE (01:27)
[2018-03-12 06:22] LABS: BASO % 0.1 % (0-2.0); HEMATOCRIT 41.3 % (32.4-45.2); HEMOGLOBIN 14.5 GM/dL (10.7-15.3); MCH 31.8 pg (25.7-33.7); MEAN CELL VOLUME 90.8 fl (80-96); MEAN PLT VOLUME 10.9 fl (7.5-11.1); MONO % 6.8 % (3.8-10.2); NEUT % 84.1 % (42.8-82.8); PLATELET COUNT 122 K/MM3 (134-434); RBC 4.55 M/mm3 (3.60-5.2); WHITE BLOOD COUNT 12.8 K/mm3 (4.0-10.0)
[2018-03-12 07:05] LABS: CHLORIDE 104 mmol/L (98-107); POTASSIUM 3.5 mmol/L (3.5-5.1); SODIUM 139 mmol/L (136-145)
[2018-03-12 07:21] LABS: ALBUMIN 3.5 g/dl (3.4-5.0); ALK PHOS 91 U/L (45-117); ANION GAP 9 (8-16); BLOOD UREA NITROGEN 14 mg/dL (7-18); CALCIUM 8.9 mg/dL (8.5-10.1); CO2 26 mmol/L (21-32); CREATININE 0.7 mg/dL (0.55-1.02); GLUCOSE,RANDOM 104 mg/dL (74-106); MAGNESIUM 2.2 mg/dL (1.8-2.4); PHOSPHOROUS 3.1 mg/dL (2.5-4.9); SGOT/AST 30 U/L (15-37); SGPT/ALT 12 U/L (12-78); TOT PROT 6.5 g/dl (6.4-8.2)
--- NOTE | 2018-03-12 08:46 | PN ---
Progress Note, Physician History of Present Illness: Ms. Quiroga is an 82 yo female w/ no pmh who presents for evaluation of abdominal pain for the last day. She reports she had a mechanical fall yesterday (confirmed by daughter who is with her) and fell onto a chair; making contact with her RLQ. She denies any LOC or head injury. Ms. Quiroga was initially ok but reports she required tylenol before bed and pain has increased today; she also does not have any appetite now and reports this is unusual. The patient denies chest pain, shortness of breath, headache and dizziness. Denies fever, chills, nausea, vomit, diarrhea and constipation. Denies dysuria, frequency, urgency and hematuria. Allergies: NKDA 82 abraham with no significant PMHx has no PCP and takes no home meds who was brought in by granddaughter with c/o increasing rt abd pain after a mechanical fall at home. As per family pt lost balance at home and hit her rt flank on couch. There was no report of LOC, dizziness, lightheadedness, chest pain, SOB, fever, chills. No head trauma. The patient then complained of intermittent sharp pain right sided pain radiating to the back, 6/10 which was relieved by tylenol. Pt was brought in the next day with worsening abd pain and loss of appetite. In the ED T 98.6, HR 91, RR 18 BP 160/100, O2 sat 100% 0n room air. She had two small episodes of non bilious non bloody emesis. Labs notable for WBC 16.7,H/H 15.9/46.1, trop0.5->0.68, lactate 2.[address] depressions in V3-V6. CT abd pelvis preliminary read c/f fluid collection vs mass near rt adrenal. Surgery and cardiology was consulted. Recommended ICU monitoring for intra-abd bleed and ACS. Pt was transferred to ICU. In the ICU A+Ox3, HR 69, BP 178/80, O2sat 97% on room air. C/o Rt chest pain and Rt flank pain 5/10 relieved by Morphine IV. No bruising, no abd tenderness or mass noted on exam. No c/o abd pain. Granddaughter states pt lives with her, has some memory loss but is independent of ADLs. - Current Medication List Current Medications: Active Medications Chlorhexidine Gluconate (Hibiclens For Decolonization -) 1 applic TP HS [facility] Last Admin: 03/11/18 22:05 Dose: 1 applic Dextrose/Sodium Chloride (D5-Ns -) 1,000 mls @ 75 mls/hr IV ASDIR [facility] Stop: 03/13/18 08:49 Last Admin: 03/11/18 22:04 Dose: 75 mls/hr Influenza Virus Vaccine Quadrival (Flulaval Quad [id number]) 60 mcg IM .ONCE ONE Stop: 03/12/18 10:01 Metoprolol Tartrate (Lopressor Injection -) 10 mg IVPUSH Q6H PRN PRN Reason: HYPERTENSION Metoprolol Tartrate (Lopressor -) 25 mg PO BID [facility] Last Admin: 03/12/18 00:17 Dose: 25 mg Morphine Sulfate (Morphine Sulfate) 2 mg IVPUSH Q4H PRN PRN Reason: PAIN LEVEL 1-5 Last Admin: 03/11/18 21:51 Dose: 2 mg Mupirocin (Bactroban Ointment (For Decolonization) -) 1 applic NS BID [facility] Stop: 03/16/18 21:59 Last Admin: 03/11/18 22:04 Dose: 1 drop - Objective Vital Signs: Vital Signs Temperature 98.8 F 03/12/18 06:00 Pulse Rate 68 03/12/18 06:00 Respiratory Rate 16 03/12/18 04:00 Blood Pressure 113/65 03/12/18 06:00 O2 Sat by Pulse Oximetry (%) 96 03/12/18 00:29 Eyes: Yes: WNL, Conjunctiva Clear, EOM Intact HENT: Yes: WNL, Atraumatic, Normocephalic Neck: Yes: WNL, Supple, Trachea Midline Cardiovascular: Yes: WNL, Regular Rate and Rhythm Respiratory: Yes: WNL, Regular, CTA Bilaterally Gastrointestinal: Yes: WNL, Normal Bowel Sounds Genitourinary: Yes: WNL Musculoskeletal: Yes: WNL Extremities: Yes: WNL Edema: No Integumentary: Yes: WNL Neurological: Yes: WNL, Alert, Oriented ...Motor Strength: WNL Psychiatric: Yes: WNL Labs: CBC, BMP 03/12/18 06:02 03/12/18 06:02 INR, PTT INR 1.08 (0.82-1.09) 03/11/18 17:48 Laboratory Tests 03/11/18 03/11/18 03/11/18 12:00 12:00 12:00 WBC 15.9 H RBC 5.10 Hgb 16.4 H Hct 45.9 H MCV 90.0 MCH 32.1 MCHC 35.7 RDW 14.3 Plt Count 150 MPV 10.2 Neutrophils % 88.6 H Lymphocytes % 5.6 L Monocytes % 5.5 Eosinophils % 0.0 Basophils % 0.3 PT with INR INR PTT (Actin FS) Sodium Cancelled Potassium Cancelled Chloride Cancelled Carbon Dioxide Cancelled Anion Gap Cancelled BUN Cancelled Creatinine Cancelled Creat Clearance w eGFR Cancelled Random Glucose Cancelled Lactic Acid Calcium Cancelled Phosphorus Magnesium Total Bilirubin Cancelled AST Cancelled ALT Cancelled Alkaline Phosphatase Cancelled Creatine Kinase Troponin I Total Protein Cancelled Albumin Cancelled Lipase Blood Type Cancelled Antibody Screen Cancelled 03/11/18 03/11/18 03/11/18 12:43 12:57 12:57 WBC RBC Hgb Hct MCV MCH MCHC RDW Plt Count MPV Neutrophils % Lymphocytes % Monocytes % Eosinophils % Basophils % PT with INR INR PTT (Actin FS) Sodium 138 Potassium 4.1 Chloride 97 L Carbon Dioxide 25 Anion Gap 16 BUN 12 Creatinine 0.7 Creat Clearance w eGFR > 60 Random Glucose 130 H Lactic Acid Calcium 9.7 Phosphorus Magnesium Total Bilirubin 1.1 H AST 46 H ALT 15 Alkaline Phosphatase 111 Creatine Kinase Troponin I Total Protein 8.1 Albumin 4.5 Lipase 95 Blood Type O POSITIVE Antibody Screen Negative 03/11/18 03/11/18 03/11/18 12:57 15:34 17:48 WBC 16.7 H RBC 5.04 Hgb 15.9 H Hct 46.1 H MCV 91.5 MCH 31.5 MCHC 34.4 RDW 13.9 Plt Count 127 L MPV 10.9 Neutrophils % 86.1 H Lymphocytes % 6.7 L Monocytes % 6.9 Eosinophils % 0.0 Basophils % 0.3 PT with INR INR PTT (Actin FS) Sodium Potassium Chloride Carbon Dioxide Anion Gap BUN Creatinine Creat Clearance w eGFR Random Glucose Lactic Acid Calcium Phosphorus Magnesium Total Bilirubin AST ALT Alkaline Phosphatase Creatine Kinase 88 Troponin I 0.50 H Total Protein Albumin Lipase Blood Type O POSITIVE Antibody Screen 03/11/18 03/11/18 03/11/18 17:48 18:30 19:25 WBC RBC Hgb Hct MCV MCH MCHC RDW Plt Count MPV Neutrophils % Lymphocytes % Monocytes % Eosinophils % Basophils % PT with INR 12.20 INR 1.08 PTT (Actin FS) 29.6 Sodium Potassium Chloride Carbon Dioxide Anion Gap BUN Creatinine Creat Clearance w eGFR Random Glucose Lactic Acid 2.5 H* Calcium Phosphorus Magnesium Total Bilirubin AST ALT Alkaline Phosphatase Creatine Kinase Cancelled Troponin I Cancelled Total Protein Albumin Lipase Blood Type Antibody Screen 03/11/18 03/12/18 03/12/18 20:01 00:01 00:01 WBC 13.8 H RBC 4.59 Hgb 14.7 Hct 41.6 MCV 90.6 MCH 32.1 MCHC 35.4 RDW 14.0 Plt Count 118 L MPV 11.0 Neutrophils % Lymphocytes % Monocytes % Eosinophils % Basophils % PT with INR INR PTT (Actin FS) Sodium Potassium Chloride Carbon Dioxide Anion Gap BUN Creatinine Creat Clearance w eGFR Random Glucose Lactic Acid Calcium Phosphorus Magnesium Total Bilirubin AST ALT Alkaline Phosphatase Creatine Kinase Troponin I 0.68 H* 0.74 H* Total Protein Albumin Lipase Blood Type Antibody Screen 03/12/18 03/12/18 03/12/18 00:01 06:02 06:02 WBC 12.8 H RBC 4.55 Hgb 14.5 Hct 41.3 MCV 90.8 MCH 31.8 MCHC 35.0 RDW 14.0 Plt Count 122 L MPV 10.9 Neutrophils % 84.1 H Lymphocytes % 9.0 D Monocytes % 6.8 Eosinophils % 0.0 Basophils % 0.1 PT with INR INR PTT (Actin FS) Sodium 139 Potassium 3.5 Chloride 104 Carbon Dioxide 26 Anion Gap 9 BUN 14 Creatinine 0.7 Creat Clearance w eGFR > 60 Random Glucose 104 Lactic Acid Calcium 8.9 Phosphorus 3.5 3.1 Magnesium 2.2 2.2 Total Bilirubin 1.0 AST 30 ALT 12 Alkaline Phosphatase 91 Creatine Kinase Troponin I Total Protein 6.5 Albumin 3.5 Lipase Blood Type Antibody Screen 03/12/18 07:15 WBC RBC Hgb Hct MCV MCH MCHC RDW Plt Count MPV Neutrophils % Lymphocytes % Monocytes % Eosinophils % Basophils % PT with INR INR PTT (Actin FS) Sodium Potassium Chloride Carbon Dioxide Anion Gap BUN Creatinine Creat Clearance w eGFR Random Glucose Lactic Acid 1.7 Calcium Phosphorus Magnesium Total Bilirubin AST ALT Alkaline Phosphatase Creatine Kinase Troponin I Total Protein Albumin Lipase Blood Type Antibody Screen Problem List - Problems (1) Elevated troponin Code(s): R74.8 - ABNORMAL LEVELS OF OTHER SERUM ENZYMES (2) Fall from ground level Code(s): W18.30XA - FALL ON SAME LEVEL, UNSPECIFIED, INITIAL ENCOUNTER (3) Hemoperitoneum Code(s): K66.1 - HEMOPERITONEUM (4) Memory impairment Code(s): R41.3 - OTHER AMNESIA Assessment/Plan adrenal hematoma s/p trauma r/o retroperitoneal bleed lactic acidosis abn ekg ? LVH hypertensive heart ds vs ischemia mildly elevated tnis no cp htn plan f/u ekg icu monitoring bb bp control cc time spent 70 min
[2018-03-12 09:53] LABS: URINE APPEARANCE CLEAR; URINE BILIRUBIN NEGATIVE (<2.0 mg/dL); URINE BLOOD 1+ (NEGATIVE); URINE COLOR YELLOW; URINE GLUCOSE (UA) 1+ (NEGATIVE); URINE KETONE TRACE (NEGATIVE); URINE LEUK ESTERASE NEGATIVE (NEGATIVE); URINE NITRITE NEGATIVE (NEGATIVE); URINE UROBILINOGEN 4.0 E.U/dl mg/dL (0.2-1.0)
[2018-03-12 09:56] LABS: URINE PROTEIN 2+ (NEGATIVE)
--- NOTE | 2018-03-12 09:57 | CONSULT ---
- Consultation REQUESTING PROVIDER: Aj Gallegos MD CONSULT REQUEST: We have been asked to surgically evaluate this patient for blunt abdominal trauma PCP:Krista Acosta MD HISTORY OF PRESENT ILLNESS: CTSP for e and m of sequelae of blunt abdominal trauma s/p mechanical fall' hx. obtained from chart and patient; she has no c/ o ? PMHx: unknown PSHx: unknown Home Medications Medication Instructions Recorded NK [No Known Home Medication] 03/11/18 Allergies Allergy/AdvReac Type Severity Reaction Status Date / Time No Known Allergies Allergy Verified 03/11/18 10:59 PHYSICAL EXAM: GENERAL: Awake, alert, and not fully oriented, in no acute distress. HEAD: Normal with no signs of trauma. EYES: PERRL, sclera anicteric, conjunctiva clear. NECK: Normal ROM, supple without lymphadenopathy, JVD, or masses. ABDOMEN: Soft, right flank and lateral chest wall tenderness;not distended, normoactive bowel sounds, voluntary guarding, no rebound, no masses. No organomegaly. No hernias MUSCULOSKELETAL: Normal ROM at all joints. No bony deformities or tenderness. No CVA tenderness. UPPER EXTREMITIES: 2+ pulses, warm, well-perfused. No cyanosis. Cap refill <2 seconds. No peripheral edema. LOWER EXTREMITIES: 2+ pulses, warm, well-perfused. No calf tenderness. No peripheral edema. NEUROLOGICAL: Normal speech, gait not observed. PSYCH: Cooperative. Good eye contact. Appropriate mood and affect. SKIN: Warm, dry, normal turgor, no rashes or lesions noted. Vital Signs Temperature 100.7 F H 03/12/18 08:00 Pulse Rate 92 H 03/12/18 08:00 Respiratory Rate 14 03/12/18 08:00 Blood Pressure 90/56 03/12/18 08:00 O2 Sat by Pulse Oximetry (%) 96 03/12/18 00:29 Lab Results WBC 12.8 K/mm3 (4.0-10.0) H 03/12/18 06:02 RBC 4.55 M/mm3 (3.60-5.2) 03/12/18 06:02 Hgb 14.5 GM/dL (10.7-15.3) 03/12/18 06:02 Hct 41.3 % (32.4-45.2) 03/12/18 06:02 MCV 90.8 fl (80-96) 03/12/18 06:02 MCHC 35.0 g/dl (32.0-36.0) 03/12/18 06:02 RDW 14.0 % (11.6-15.6) 03/12/18 06:02 Plt Count 122 K/MM3 (134-434) L 03/12/18 06:02 Sodium 139 mmol/L (136-145) 03/12/18 06:02 Potassium 3.5 mmol/L (3.5-5.1) 03/12/18 06:02 Chloride 104 mmol/L (98-107) 03/12/18 06:02 Carbon Dioxide 26 mmol/L (21-32) 03/12/18 06:02 Anion Gap 9 (8-16) 03/12/18 06:02 BUN 14 mg/dL (7-18) 03/12/18 06:02 Creatinine 0.7 mg/dL (0.55-1.02) 03/12/18 06:02 Random Glucose 104 mg/dL (74-106) 03/12/18 06:02 Calcium 8.9 mg/dL (8.5-10.1) 03/12/18 06:02 Blood Type O POSITIVE 03/11/18 15:34 Antibody Screen Negative 03/11/18 12:43 INR 1.08 (0.82-1.09) 03/11/18 17:48 CT a/p right perirenal hematoma vs. mass UA 1+ blood IMP: blunt trauma PLAN: Continue present tx.; serial h/h and follow clinically; if stable over 24 hours may be xferred to regular floor; ? if this is an adrenal incidentaloma if a mass and unrelated to the trauma; will f/u. ? Urology evaluation Aj Escalante MD FACS
[2018-03-12] MEDS ORDERED: FLU VACCINE QUAD 60 MCG/0.5 ML (MDV 17-18) IM ONE (10:00)
--- NOTE | 2018-03-12 10:18 | PN ---
Progress Note (short form) - Note Progress Note: Patient seen and examined in the ICU. Awake and alert. Still with some Right flank pain. No CP or SOB. Being seen by surgery. Intake & Output 03/09/18 03/10/18 03/11/18 03/12/18 23:59 23:59 23:59 23:59 Intake Total 75 575 Output Total 900 Balance 75 -325 Weight 113 lb 3.2 oz Last Vital Signs Temp Pulse Resp BP Pulse Ox 100.7 F H 92 H 14 90/56 96 03/12/18 08:00 03/12/18 08:00 03/12/18 09:00 03/12/18 08:00 03/12/18 09:00 Active Medications Chlorhexidine Gluconate (Hibiclens For Decolonization -) 1 applic TP HS [facility] Last Admin: 03/11/18 22:05 Dose: 1 applic Dextrose/Sodium Chloride (D5-Ns -) 1,000 mls @ 75 mls/hr IV ASDIR [facility] Stop: 03/13/18 08:49 Last Admin: 03/11/18 22:04 Dose: 75 mls/hr Metoprolol Tartrate (Lopressor Injection -) 10 mg IVPUSH Q6H PRN PRN Reason: HYPERTENSION Metoprolol Tartrate (Lopressor -) 25 mg PO BID [facility] Last Admin: 03/12/18 00:17 Dose: 25 mg Morphine Sulfate (Morphine Sulfate) 2 mg IVPUSH Q4H PRN PRN Reason: PAIN LEVEL 1-5 Last Admin: 03/11/18 21:51 Dose: 2 mg Mupirocin (Bactroban Ointment (For Decolonization) -) 1 applic NS BID [facility] Stop: 03/16/18 21:59 Last Admin: 03/11/18 22:04 Dose: 1 drop Constitutional: Yes: Well Nourished, No Distress Eyes: Yes: WNL, PERRL HENT: Yes: Atraumatic, Normocephalic Neck: Yes: Supple, Trachea Midline Cardiovascular: Yes: Regular Rate and Rhythm, S1, S2 Respiratory: Yes: WNL, Regular, CTA Bilaterally Gastrointestinal: Yes: Normal Bowel Sounds, Soft Renal/: Yes: WNL Musculoskeletal: Yes: Right Flank Pain Edema: No Peripheral Pulses WNL: Yes Integumentary: Yes: WNL Neurological: Yes: Alert, Oriented, Non-focal ...Motor Strength: WNL Psychiatric: Yes: Alert, Oriented Labs: Problem List - Problems (1) Elevated troponin Code(s): R74.8 - ABNORMAL LEVELS OF OTHER SERUM ENZYMES (2) Fall from ground level Code(s): W18.30XA - FALL ON SAME LEVEL, UNSPECIFIED, INITIAL ENCOUNTER (3) Hemoperitoneum Code(s): K66.1 - HEMOPERITONEUM (4) Memory impairment Code(s): R41.3 - OTHER AMNESIA Assessment/Plan (?) Hematoma vs Mass (?) demand ischemia Leukocytosis Plan: Surgical evaluation Cardiology evaluation Pain control O2 as needed Lopressor NC O2 as needed Incentive Spirometry ICU monitoring Dr Ching Critical care time spent in reviewing chart, evaluating patient and formulating plan - 36 minutes.
[2018-03-12 10:19] LABS: EPI CELLS RARE /HPF (FEW); URINE HYALINE CAST 1 /lpf; URINE MUCUS RARE
[2018-03-12] MEDS: MUPIROCIN 2% TOPICAL OINTMENT FOR DECOLONIZATION NS SCH ×2 (11:00→21:07)
[2018-03-12] MEDS: DEXTROSE 5%-NORMAL SALINE 1,000 ML IV SCH (13:05)
--- NOTE | 2018-03-12 13:25 | EKG ---
Test Reason : Blood Pressure : / mmHG Vent. Rate : 065 BPM Atrial Rate : 065 BPM P-R Int : 156 ms QRS Dur : 080 ms QT Int : 462 ms P-R-T Axes : 045 026 033 degrees QTc Int : 480 ms NORMAL SINUS RHYTHM NONSPECIFIC ST ABNORMALITY ABNORMAL ECG WHEN COMPARED WITH ECG OF 11-MAR-2018 18:56, CRITERIA FOR SEPTAL INFARCT ARE NO LONGER PRESENT ST NO LONGER DEPRESSED IN INFERIOR LEADS ST NO LONGER DEPRESSED IN ANTERIOR LEADS Confirmed by FREEMAN OQUENDO MD ([id number]) on 03/12/2018 1:25:15 PM Referred By: Confirmed By:FREEMAN OQUENDO MD
--- NOTE | 2018-03-12 13:25 | EKG ---
Test Reason : Blood Pressure : / mmHG Vent. Rate : 076 BPM Atrial Rate : 076 BPM P-R Int : 130 ms QRS Dur : 076 ms QT Int : 404 ms P-R-T Axes : 052 029 050 degrees QTc Int : 454 ms NORMAL SINUS RHYTHM SEPTAL INFARCT , AGE UNDETERMINED MARKED ST ABNORMALITY, POSSIBLE INFERIOR SUBENDOCARDIAL INJURY ABNORMAL ECG WHEN COMPARED WITH ECG OF 20-APR-2007 16:47, SIGNIFICANT CHANGES HAVE OCCURRED Confirmed by FREEMAN OQUENDO MD ([id number]) on 03/12/2018 1:25:19 PM Referred By: Confirmed By:FREEMAN OQUENDO MD
--- NOTE | 2018-03-12 13:26 | EKG ---
Test Reason : Blood Pressure : / mmHG Vent. Rate : 068 BPM Atrial Rate : 068 BPM P-R Int : 138 ms QRS Dur : 082 ms QT Int : 456 ms P-R-T Axes : 040 016 034 degrees QTc Int : 484 ms NORMAL SINUS RHYTHM NONSPECIFIC ST ABNORMALITY ABNORMAL ECG WHEN COMPARED WITH ECG OF 11-MAR-2018 21:29, NO SIGNIFICANT CHANGE WAS FOUND Confirmed by FREEMAN OQUENDO MD ([id number]) on 03/12/2018 1:25:52 PM Referred By: Mari LEUNG Confirmed By:FREEMAN OQUENDO MD
--- NOTE | 2018-03-12 17:10 | PN ---
Teaching Attending Note Name of Resident: Krista Acosta SUBJECTIVE: Patient seen and examined. Still with right sided pain, no chest pain, palpitations, dyspnea, dizziness or urinary symptoms. OBJECTIVE: Vital Signs Period Temp Pulse Resp BP Sys/Horton Pulse Ox Last 24 Hr 98.3 F-99.1 F 63-75 12-18 106-193/63-93 96-98 Intake & Output 03/09/18 03/10/18 03/11/18 03/12/18 23:59 23:59 23:59 23:59 Intake Total 75 775 Output Total 950 Balance 75 -175 Weight 113 lb 3.2 oz General: sitting in bed in no acute distress Chest: CTAB, no rales or wheezing Abdomen: Soft, right lateral abdominal and right CVA tenderness, NT otherwise, Nd, positive bowel sounds extremities: no edema Home Medication List Medication Instructions Recorded Confirmed Type NK [No Known Home Medication] 03/11/18 03/11/18 History Active Medications Generic Name Dose Route Start Last Admin Trade Name Freq PRN Reason Stop Dose Admin Chlorhexidine Gluconate 1 applic 03/11/18 22:00 03/11/18 22:05 Hibiclens For Decolonization - TP 1 applic HS [facility] Administration Dextrose/Sodium Chloride 1,000 mls @ 75 mls/hr 03/11/18 19:30 03/12/18 13:05 D5-Ns - IV 03/13/18 08:49 75 mls/hr ASDIR [facility] Administration Metoprolol Tartrate 10 mg 03/11/18 19:21 Lopressor Injection - IVPUSH Q6H PRN HYPERTENSION Metoprolol Tartrate 25 mg 03/11/18 23:45 03/12/18 10:36 Lopressor - PO 25 mg BID [facility] Administration Morphine Sulfate 2 mg 03/11/18 20:06 03/11/18 21:51 Morphine Sulfate IVPUSH 2 mg Q4H PRN Administration PAIN LEVEL 1-5 Mupirocin 1 applic 03/11/18 22:00 03/12/18 11:00 Bactroban Ointment (For Decolonization) - NS 03/16/18 21:59 1 applic BID [facility] Administration Laboratory Results - last 24 hr 03/11/18 03/11/18 03/11/18 12:57 12:57 17:48 WBC 16.7 H RBC 5.04 Hgb 15.9 H Hct 46.1 H MCV 91.5 MCH 31.5 MCHC 34.4 RDW 13.9 Plt Count 127 L MPV 10.9 Neutrophils % 86.1 H Lymphocytes % 6.7 L Monocytes % 6.9 Eosinophils % 0.0 Basophils % 0.3 PT with INR INR PTT (Actin FS) Sodium Potassium Chloride Carbon Dioxide Anion Gap BUN Creatinine Creat Clearance w eGFR Random Glucose Lactic Acid Calcium Phosphorus Magnesium Total Bilirubin AST ALT Alkaline Phosphatase Creatine Kinase 88 Troponin I 0.50 H Total Protein Albumin Lipase 95 Urine Color Urine Appearance Urine pH Ur Specific [place] Urine Protein Urine Glucose (UA) Urine Ketones Urine Blood Urine Nitrite Urine Bilirubin Urine Urobilinogen Ur Leukocyte Esterase Urine WBC (Auto) Urine RBC (Auto) Ur Epithelial Cells Hyaline Casts Urine Mucus 03/11/18 03/11/18 03/11/18 17:48 18:30 19:25 WBC RBC Hgb Hct MCV MCH MCHC RDW Plt Count MPV Neutrophils % Lymphocytes % Monocytes % Eosinophils % Basophils % PT with INR 12.20 INR 1.08 PTT (Actin FS) 29.6 Sodium Potassium Chloride Carbon Dioxide Anion Gap BUN Creatinine Creat Clearance w eGFR Random Glucose Lactic Acid 2.5 H* Calcium Phosphorus Magnesium Total Bilirubin AST ALT Alkaline Phosphatase Creatine Kinase Cancelled Troponin I Cancelled Total Protein Albumin Lipase Urine Color Urine Appearance Urine pH Ur Specific [place] Urine Protein Urine Glucose (UA) Urine Ketones Urine Blood Urine Nitrite Urine Bilirubin Urine Urobilinogen Ur Leukocyte Esterase Urine WBC (Auto) Urine RBC (Auto) Ur Epithelial Cells Hyaline Casts Urine Mucus 03/11/18 03/12/18 03/12/18 20:01 00:01 00:01 WBC 13.8 H RBC 4.59 Hgb 14.7 Hct 41.6 MCV 90.6 MCH 32.1 MCHC 35.4 RDW 14.0 Plt Count 118 L MPV 11.0 Neutrophils % Lymphocytes % Monocytes % Eosinophils % Basophils % PT with INR INR PTT (Actin FS) Sodium Potassium Chloride Carbon Dioxide Anion Gap BUN Creatinine Creat Clearance w eGFR Random Glucose Lactic Acid Calcium Phosphorus Magnesium Total Bilirubin AST ALT Alkaline Phosphatase Creatine Kinase Troponin I 0.68 H* 0.74 H* Total Protein Albumin Lipase Urine Color Urine Appearance Urine pH Ur Specific [place] Urine Protein Urine Glucose (UA) Urine Ketones Urine Blood Urine Nitrite Urine Bilirubin Urine Urobilinogen Ur Leukocyte Esterase Urine WBC (Auto) Urine RBC (Auto) Ur Epithelial Cells Hyaline Casts Urine Mucus 03/12/18 03/12/18 03/12/18 00:01 06:02 06:02 WBC 12.8 H RBC 4.55 Hgb 14.5 Hct 41.3 MCV 90.8 MCH 31.8 MCHC 35.0 RDW 14.0 Plt Count 122 L MPV 10.9 Neutrophils % 84.1 H Lymphocytes % 9.0 D Monocytes % 6.8 Eosinophils % 0.0 Basophils % 0.1 PT with INR INR PTT (Actin FS) Sodium 139 Potassium 3.5 Chloride 104 Carbon Dioxide 26 Anion Gap 9 BUN 14 Creatinine 0.7 Creat Clearance w eGFR > 60 Random Glucose 104 Lactic Acid Calcium 8.9 Phosphorus 3.5 3.1 Magnesium 2.2 2.2 Total Bilirubin 1.0 AST 30 ALT 12 Alkaline Phosphatase 91 Creatine Kinase Troponin I Total Protein 6.5 Albumin 3.5 Lipase Urine Color Urine Appearance Urine pH Ur Specific [place] Urine Protein Urine Glucose (UA) Urine Ketones Urine Blood Urine Nitrite Urine Bilirubin Urine Urobilinogen Ur Leukocyte Esterase Urine WBC (Auto) Urine RBC (Auto) Ur Epithelial Cells Hyaline Casts Urine Mucus 03/12/18 03/12/18 07:00 07:15 WBC RBC Hgb Hct MCV MCH MCHC RDW Plt Count MPV Neutrophils % Lymphocytes % Monocytes % Eosinophils % Basophils % PT with INR INR PTT (Actin FS) Sodium Potassium Chloride Carbon Dioxide Anion Gap BUN Creatinine Creat Clearance w eGFR Random Glucose Lactic Acid 1.7 Calcium Phosphorus Magnesium Total Bilirubin AST ALT Alkaline Phosphatase Creatine Kinase Troponin I Total Protein Albumin Lipase Urine Color Yellow Urine Appearance Clear Urine pH 6.0 Ur Specific [place] 1.026 Urine Protein 2+ H Urine Glucose (UA) 1+ H Urine Ketones Trace H Urine Blood 1+ H Urine Nitrite Negative Urine Bilirubin Negative Urine Urobilinogen 4.0 e.u/dl H Ur Leukocyte Esterase Negative Urine WBC (Auto) 5 Urine RBC (Auto) 10 Ur Epithelial Cells Rare Hyaline Casts 1 Urine Mucus Rare ASSESSMENT AND PLAN: 82 yof with traumatic Right adrenal hematoma vs mass of adrenal gland and hypertensive urgency. -Likely traumatic right adrenal hematoma, low suspicion for adrenal mass -Hypertensive urgency -Abnormal EKG -Mild troponin elevation likely demand induced from above, EKG unchanged, more suggestive of strain pattern than ACS Plan: Surgery input noted. h/h and hemodynamics stable. Monitor for now. hematoma vs adrenal mass. discussed with radiology Dr. Wen, recommends short term follow up CT A/p tomorrow or Tuesday to ensure is resolving and another follow up CT in a week or so. But hold off on MRI or additional imaging as unlikely to be of benefit currently. cardiology input noted. repeat troponin to trend, low suspicion for ACS. Follow up 2D echo, BP control. No ASA given concerns for traumatic hematoma. Follow up official CT A/P read. Suspect underlying undiagnosed HTN, now with pain. Pain control with low dose morphine and metoprolol prn. DVTPPx with SCDs Plan discussed with patient and grand daughter in detail, all questions answered. Transfer to tele in 24 hours if no new concerns. total critical care time spent 35 min.
[2018-03-12] MEDS: CHLORHEXIDINE GLUCONATE 4% CLEANSER FOR DECOLONIZATION TP SCH (21:08)
[2018-03-13] MEDS: DEXTROSE 5%-NORMAL SALINE 1,000 ML IV SCH (01:13)
[2018-03-13] MEDS: morphine SULFATE 4 MG/ML VIAL IVPUSH PRN (06:07)
[2018-03-13 06:13] LABS: BASO % 0.2 % (0-2.0); EOS % 0.5 % (0-4.5); HEMOGLOBIN 13.9 GM/dL (10.7-15.3); LYMPH % 15.7 % (8-40); MCHC 35.5 g/dl (32.0-36.0); MEAN CELL VOLUME 92.9 fl (80-96); MEAN PLT VOLUME 10.7 fl (7.5-11.1); MONO % 8.2 % (3.8-10.2); NEUT % 75.4 % (42.8-82.8); PLATELET COUNT 98 K/MM3 (134-434); RDW 14.1 % (11.6-15.6); WHITE BLOOD COUNT 9.1 K/mm3 (4.0-10.0)
[2018-03-13 06:43] LABS: ANION GAP 6 (8-16); BLOOD UREA NITROGEN 12 mg/dL (7-18); CALCIUM 8.4 mg/dL (8.5-10.1); CHLORIDE 108 mmol/L (98-107); CO2 29 mmol/L (21-32); CREATININE 0.6 mg/dL (0.55-1.02); GLUCOSE,RANDOM 80 mg/dL (74-106); MAGNESIUM 2.2 mg/dL (1.8-2.4); PHOSPHOROUS 2.5 mg/dL (2.5-4.9); POTASSIUM 3.3 mmol/L (3.5-5.1); SODIUM 143 mmol/L (136-145)
--- NOTE | 2018-03-13 07:28 | PN ---
Progress Note (short form) - Note Progress Note: 82 yo female admitted with perirenal hematoma s/p fall at home after tripping on couch --> right side of her abdomen. Currently resting in position of comfort. C/o mild right flank tenderness. Denies n/v, CP, hematuria Last Vital Signs Temp Pulse Resp BP Pulse Ox 98.7 F 62 15 153/69 96 03/13/18 06:00 03/13/18 06:00 03/13/18 06:00 03/13/18 06:00 03/12/18 21:57 CBC, BMP 03/13/18 05:40 03/13/18 05:40 Gen: alert. nad ABD: soft. milld ttp to right flank w/ minimal voluntary guarding. Problem List - Problems (1) Hemoperitoneum Assessment/Plan: Right perirenal hematoma s/p fall. Hemodynamically stable Replete potassium f/u CXR pain management prn Serial H/H Serial abd exam DVT ppx Cont conservative management Code(s): K66.1 - HEMOPERITONEUM
[2018-03-13] MEDS ORDERED: POTASSIUM CHLORIDE ORAL LIQUID 20 MEQ/15 ML PO SCH ×2 (08:00→22:00)
[2018-03-13] MEDS: METOPROLOL TARTRATE 25 MG TABLET (FP) PO SCH ×2 (09:10→21:23)
[2018-03-13] MEDS: MUPIROCIN 2% TOPICAL OINTMENT FOR DECOLONIZATION NS SCH (09:10)
--- NOTE | 2018-03-13 11:55 | PN ---
Teaching Attending Note Name of Resident: Ghazal Hall ATTENDING PHYSICIAN STATEMENT I saw and evaluated the patient. I reviewed the resident's note and discussed the case with the resident. I agree with the resident's findings and plan as documented with exceptions below. SUBJECTIVE: Patient seen and examined, Still with right sided pain. No chest pain, palpitations, dyspnea, dizziness. Tolerating diet well. OBJECTIVE: Vital Signs Period Temp Pulse Resp BP Sys/Horton Pulse Ox Last 24 Hr 98.4 F-98.8 F 61-74 15-17 128-163/56-89 96-96 Intake & Output 03/10/18 03/11/18 03/12/18 03/13/18 23:59 23:59 23:59 23:59 Intake Total 75 1995 1000 Output Total 950 Balance 75 1045 1000 Weight 113 lb 3.2 oz 115 lb 1.301 oz General: lying in bed in no acute distress Abdomen: RUQ/Right lateral abdomen and Rt CVA tenderness unchanged, NT otherwise , no voluntary or involuntary guarding or rigidity, pos bowel sounds Extremities: no edema Chest: CTAB, no rales or wheezing Home Medication List Medication Instructions Recorded Confirmed Type NK [No Known Home Medication] 03/11/18 03/11/18 History Active Medications Generic Name Dose Route Start Last Admin Trade Name Freq PRN Reason Stop Dose Admin Chlorhexidine Gluconate 1 applic 03/11/18 22:00 03/12/18 21:08 Hibiclens For Decolonization - TP 1 applic HS SANIA Administration Metoprolol Tartrate 10 mg 03/11/18 19:21 Lopressor Injection - IVPUSH Q6H PRN HYPERTENSION Metoprolol Tartrate 25 mg 03/11/18 23:45 03/13/18 09:10 Lopressor - PO 25 mg BID SANIA Administration Morphine Sulfate 2 mg 03/11/18 20:06 03/13/18 06:07 Morphine Sulfate IVPUSH 2 mg Q4H PRN Administration PAIN LEVEL 1-5 Mupirocin 1 applic 03/11/18 22:00 03/13/18 09:10 Bactroban Ointment (For Decolonization) - NS 03/16/18 21:59 1 applic BID SANIA Administration Potassium Chloride 40 meq 03/13/18 08:00 03/13/18 09:10 Potassium Chloride Oral Liquid PO 03/13/18 22:01 40 meq BID SANIA Administration Laboratory Results - last 24 hr 03/12/18 03/13/18 03/13/18 17:25 05:40 05:40 WBC 9.1 RBC 4.20 Hgb 13.9 Hct 39.0 MCV 92.9 MCH 33.0 MCHC 35.5 RDW 14.1 Plt Count 98 L MPV 10.7 Neutrophils % 75.4 Lymphocytes % 15.7 D Monocytes % 8.2 Eosinophils % 0.5 D Basophils % 0.2 Sodium 143 Potassium 3.3 L Chloride 108 H Carbon Dioxide 29 Anion Gap 6 L BUN 12 Creatinine 0.6 Random Glucose 80 Calcium 8.4 L Phosphorus 2.5 Magnesium 2.2 Troponin I 0.35 H ASSESSMENT AND PLAN: 82 yof with traumatic Right adrenal hematoma vs mass of adrenal gland and hypertensive urgency. -Likely traumatic right adrenal hematoma, r/o adrenal mass -Hypertensive urgency -Abnormal EKG -Mild troponin elevation likely demand induced from above, EKG unchanged, more suggestive of strain pattern than ACS -Left adrenal nodule Plan: Surgery input noted. h/h and hemodynamics stable. Monitor for now. hematoma vs adrenal mass. discussed with radiology Dr. Wen, recommends short term follow up CT A/p later tonight or tomorrow (in 48-72 hours) to ensure is resolving and another follow up CT in a week or so. But hold off on MRI or additional imaging as unlikely to be of benefit currently. Cardiology input noted.Troponin trended down, low suspicion for ACS. Follow up 2D echo, BP control. No ASA given concerns for traumatic hematoma. Continue PO lopressor. Suspect underlying undiagnosed HTN, now with pain response, continue lopressor. d/c morphine, start tylenol prn. Add low dose oxycodone if ongoing pain. DVTPPx with SCDs Plan discussed with patient and grand daughter in detail, all questions answered. Agree with transfer to telemetry. total critical care time spent 35 min.
[2018-03-13] MEDS ORDERED: METOPROLOL TARTRATE 5 MG/5 ML VIAL IVPUSH PRN (12:08)
--- NOTE | 2018-03-13 12:57 | PN ---
Physical Exam: SUBJECTIVE: Patient seen and examined. Still having the abdominal discomfort, relieved with morphine. No nausea or vomiting, no chest pain. OBJECTIVE: Vital Signs Period Temp Pulse Resp BP Sys/Horton Pulse Ox Last 24 Hr 98.6 F-98.8 F 61-74 15-17 128-163/56-89 96-96 Vital Signs Temp 98.7 F 03/13/18 06:00 Pulse 69 03/13/18 08:00 Resp 16 03/13/18 09:00 BP 154/59 03/13/18 08:00 Pulse Ox 96 03/13/18 09:00 Intake & Output 03/12/18 03/13/18 03/13/18 23:59 11:59 23:59 Intake Total 1420 1000 Output Total 50 Balance 1370 1000 Weight 52.2 kg Intake: IV 900 900 D5-Ns - 1,000 ml @ 75 mls 900 900 /hr IV ASDIR SANIA Rx#: [id number] Oral 520 100 Output: Urine 50 Void 50 Other: Voiding Method Bedpan Bedpan # Unmeasured Voids Void 1 1 Bowel Movement No Weight Measurement Method [facility] GENERAL: The patient is awake, alert, and fully oriented, in no acute distress. EYES: PERRL, extraocular movements intact, sclera anicteric, conjunctiva clear. No ptosis. ENT: moist mucous membranes. LUNGS: Breath sounds equal, clear to auscultation bilaterally, HEART: Regular rate and rhythm, S1, S2 ABDOMEN: Soft, tender RLQ and flank, nondistended, normoactive bowel sounds, EXTREMITIES: 2+ pulses, warm, well-perfused, no edema. NEUROLOGICAL: No facial droop, muscle power 5/5 globally. Normal speech P Laboratory Results - last 24 hr 03/12/18 03/13/18 03/13/18 17:25 05:40 05:40 WBC 9.1 RBC 4.20 Hgb 13.9 Hct 39.0 MCV 92.9 MCH 33.0 MCHC 35.5 RDW 14.1 Plt Count 98 L MPV 10.7 Neutrophils % 75.4 Lymphocytes % 15.7 D Monocytes % 8.2 Eosinophils % 0.5 D Basophils % 0.2 Sodium 143 Potassium 3.3 L Chloride 108 H Carbon Dioxide 29 Anion Gap 6 L BUN 12 Creatinine 0.6 Random Glucose 80 Calcium 8.4 L Phosphorus 2.5 Magnesium 2.2 Troponin I 0.35 H Active Medications Generic Name Dose Route Start Last Admin Trade Name Freq PRN Reason Stop Dose Admin Acetaminophen 650 mg 03/13/18 11:59 Tylenol - PO Q6H PRN PAIN Chlorhexidine Gluconate 1 applic 03/13/18 22:00 Hibiclens For Decolonization - TP HS [facility]IA Metoprolol Tartrate 25 mg 03/13/18 22:00 Lopressor - PO BID [facility] Metoprolol Tartrate 10 mg 03/13/18 12:08 Lopressor Injection - IVPUSH Q6H PRN HYPERTENSION Mupirocin 1 applic 03/13/18 22:00 Bactroban Ointment (For Decolonization) - NS 03/16/18 21:59 BID [facility] Potassium Chloride 40 meq 03/13/18 22:00 Potassium Chloride Oral Liquid PO 03/13/18 22:01 BID SANIA ASSESSMENT/PLAN: 82 yo F with no significant PMHx presented s/p abdominal trauma, with abdominal pain found to have retroperitoneal hematoma/r/o mass R Flank pain: -CT abdomen/pelvis visiualized complex fluid in the hepatorenal space compatible with blood with hematoma versus mass of the right adrenal gland measuring 3.8 x 2.7 cm axially-report from Imaging precision machining instructor, still waiting for official read. -Surgery-Dr Escalante was consulted and recommended to monitor the patient in ICU overnight with monitoring H/H -discontinued IVF -will continue with pain control: Morphine 2 mg Q4H PRN -elevated LA to 2.5- resolved -No change in H&H- pt has stable vitals -Maybe transferred to tele -For repeat CT/abd w/o contrast tomorrow-order in for 7am Hypertensive urgency: -Resolved -possibly due to pain, Morphine -not on any home meds -BP elevated to 194/89. -will continue Lopressor 10 mg Q6H PRN - EKG changes: -the patient had st depression in v1-v3 -possible LVH -troponins and ekg every 6 h Troponinemia: -Peaked, now normal Bladder obstruction: -not complaining of any dysuria, based on CT preliminary read -will monitor -bladder scan ordered Leukocytosis: -WBC 15.9- resolved -will monitor for signs of infections DVT PPX: -scds no Heparin F/E/N: D5NS- stopped Pt taking PO low salt diet Monitor Jo-Ann Dispo: Transfer to tele Visit type - Emergency Visit Emergency Visit: Yes ED Registration Date: 03/11/18 Care time: The patient presented to the Emergency Department on the above date and was hospitalized for further evaluation of their emergent condition. - New Patient This patient is new to me today: Yes Date on this admission: 03/13/18 - Critical Care Critical Care patient: Yes Total Critical Care Time (in minutes): 40 Critical Care Statement: The care of this patient involved high complexity decision making to prevent further life threatening deterioration of the patient 's condition and/or to evaluate & treat vital organ system(s) failure or risk of failure.
--- NOTE | 2018-03-13 13:21 | PN ---
Physical Exam: SUBJECTIVE: Patient awake, tolerating PO intake. Continues to c/o R sided abdominal pain. Last BM yesterday evening OBJECTIVE: Vital Signs Period Temp Pulse Resp BP Sys/Horton Pulse Ox Last 24 Hr 98.6 F-98.8 F 57-74 14-17 110-163/52-89 96-96 GENERAL: The patient is awake, alert, and fully oriented, in no acute distress. HEAD: Normal with no signs of trauma. EYES: PERRL, extraocular movements intact, sclera anicteric, conjunctiva clear. No ptosis. NECK: Trachea midline, full range of motion, supple. LUNGS: Breath sounds equal, clear to auscultation bilaterally, no wheezes, no crackles, no accessory muscle use. HEART: Regular rate and rhythm, S1, S2 without murmur, rub or gallop. ABDOMEN: Soft, RUQ TTP, no visible ecchymosis, no visible hematoma EXTREMITIES: 2+ pulses, warm, well-perfused, no edema. NEUROLOGICAL: Cranial nerves II through XII grossly intact. Normal speech, gait not observed. PSYCH: Normal mood, normal affect. Laboratory Results - last 24 hr 03/12/18 03/13/18 03/13/18 17:25 05:40 05:40 WBC 9.1 RBC 4.20 Hgb 13.9 Hct 39.0 MCV 92.9 MCH 33.0 MCHC 35.5 RDW 14.1 Plt Count 98 L MPV 10.7 Neutrophils % 75.4 Lymphocytes % 15.7 D Monocytes % 8.2 Eosinophils % 0.5 D Basophils % 0.2 Sodium 143 Potassium 3.3 L Chloride 108 H Carbon Dioxide 29 Anion Gap 6 L BUN 12 Creatinine 0.6 Random Glucose 80 Calcium 8.4 L Phosphorus 2.5 Magnesium 2.2 Troponin I 0.35 H Active Medications Generic Name Dose Route Start Last Admin Trade Name Freq PRN Reason Stop Dose Admin Acetaminophen 650 mg 03/13/18 11:59 Tylenol - PO Q6H PRN PAIN Chlorhexidine Gluconate 1 applic 03/13/18 22:00 Hibiclens For Decolonization - TP HS SANIA Metoprolol Tartrate 25 mg 03/13/18 22:00 Lopressor - PO BID [facility]IA Metoprolol Tartrate 10 mg 03/13/18 12:08 Lopressor Injection - IVPUSH Q6H PRN HYPERTENSION Mupirocin 1 applic 03/13/18 22:00 Bactroban Ointment (For Decolonization) - NS 03/16/18 21:59 BID [facility] Potassium Chloride 40 meq 03/13/18 22:00 Potassium Chloride Oral Liquid PO 03/13/18 22:01 BID [facility] ASSESSMENT/PLAN: 82 year old female s/p likely mechanical fall with injury to RUQ, CT showed adrenal hematoma. Hypertensive urgency @ presentation, current BP 140's/60's. 1. ADRENAL HEMATOMA - likely 2/2 to traumatic injury - CT @ presentation showed blood in hepatorenal recess with R sided hematoma - Gen surgery following - noted no need for acute surgical intervention; continue to appreciate recs - Pain control w/ Morphine 2. TROPONINEMIA 0.35 yesterday (03/12) <-- 0.74 <-- 0.[address] elevation in AVR, w/reciprocal change in lateral leads Repeat Troponin pending, will continue to monitor 3. HYPERTENSIVE URGENCY - RESOLVED - 24 hour BP range: 140's-150's/50's-60's - Hypertensive urgency (160/100) @ presentation - Continue Lopressor 4. HYPOKALEMIA K+ 3.3 today (03/13) - IV replacement pending PROPHYLAXIS Heparin SQ FEN Electrolye replacement as noted Low Na Diet DISPOSITION: Patient stable for transfer to inpatient medicine floor Visit type - Emergency Visit Emergency Visit: No - New Patient This patient is new to me today: Yes Date on this admission: 03/13/18 - Critical Care Critical Care patient: No
--- NOTE | 2018-03-13 13:25 | PN ---
Progress Note, Physician History of Present Illness: Ms. Quiroga is an 82 yo female w/ no pmh who presents for evaluation of abdominal pain for the last day. She reports she had a mechanical fall yesterday (confirmed by daughter who is with her) and fell onto a chair; making contact with her RLQ. She denies any LOC or head injury. Ms. Quiroga was initially ok but reports she required tylenol before bed and pain has increased today; she also does not have any appetite now and reports this is unusual. The patient denies chest pain, shortness of breath, headache and dizziness. Denies fever, chills, nausea, vomit, diarrhea and constipation. Denies dysuria, frequency, urgency and hematuria. Allergies: NKDA 82 abraham with no significant PMHx has no PCP and takes no home meds who was brought in by granddaughter with c/o increasing rt abd pain after a mechanical fall at home. As per family pt lost balance at home and hit her rt flank on couch. There was no report of LOC, dizziness, lightheadedness, chest pain, SOB, fever, chills. No head trauma. The patient then complained of intermittent sharp pain right sided pain radiating to the back, 6/10 which was relieved by tylenol. Pt was brought in the next day with worsening abd pain and loss of appetite. In the ED T 98.6, HR 91, RR 18 BP 160/100, O2 sat 100% 0n room air. She had two small episodes of non bilious non bloody emesis. Labs notable for WBC 16.7,H/H 15.9/46.1, trop0.5->0.68, lactate 2.[address] depressions in V3-V6. CT abd pelvis preliminary read c/f fluid collection vs mass near rt adrenal. Surgery and cardiology was consulted. Recommended ICU monitoring for intra-abd bleed and ACS. Pt was transferred to ICU. In the ICU A+Ox3, HR 69, BP 178/80, O2sat 97% on room air. C/o Rt chest pain and Rt flank pain 5/10 relieved by Morphine IV. No bruising, no abd tenderness or mass noted on exam. No c/o abd pain. Granddaughter states pt lives with her, has some memory loss but is independent of ADLs. - Current Medication List Current Medications: Active Medications Acetaminophen (Tylenol -) 650 mg PO Q6H PRN PRN Reason: PAIN Chlorhexidine Gluconate (Hibiclens For Decolonization -) 1 applic TP HS [facility] Metoprolol Tartrate (Lopressor -) 25 mg PO BID [facility] Metoprolol Tartrate (Lopressor Injection -) 10 mg IVPUSH Q6H PRN PRN Reason: HYPERTENSION Mupirocin (Bactroban Ointment (For Decolonization) -) 1 applic NS BID [facility] Stop: 03/16/18 21:59 Potassium Chloride (Potassium Chloride Oral Liquid) 40 meq PO BID [facility] Stop: 03/13/18 22:01 - Objective Vital Signs: Vital Signs Temperature 98.6 F 03/13/18 10:00 Pulse Rate 57 L 03/13/18 12:00 Respiratory Rate 15 03/13/18 12:00 Blood Pressure 113/52 03/13/18 12:00 O2 Sat by Pulse Oximetry (%) 96 03/13/18 09:00 Eyes: Yes: WNL, Conjunctiva Clear, EOM Intact HENT: Yes: WNL, Atraumatic, Normocephalic Neck: Yes: WNL, Supple, Trachea Midline Cardiovascular: Yes: WNL, Regular Rate and Rhythm Respiratory: Yes: WNL, Regular, CTA Bilaterally Gastrointestinal: Yes: WNL, Normal Bowel Sounds Genitourinary: Yes: WNL Musculoskeletal: Yes: WNL Extremities: Yes: WNL Edema: No Integumentary: Yes: WNL Neurological: Yes: WNL, Alert, Oriented ...Motor Strength: WNL Psychiatric: Yes: WNL Labs: CBC, BMP 03/13/18 05:40 03/13/18 05:40 INR, PTT INR 1.08 (0.82-1.09) 03/11/18 17:48 Problem List - Problems (1) Elevated troponin Code(s): R74.8 - ABNORMAL LEVELS OF OTHER SERUM ENZYMES (2) Fall from ground level Code(s): W18.30XA - FALL ON SAME LEVEL, UNSPECIFIED, INITIAL ENCOUNTER (3) Hemoperitoneum Code(s): K66.1 - HEMOPERITONEUM (4) Memory impairment Code(s): R41.3 - OTHER AMNESIA Assessment/Plan adrenal hematoma s/p trauma r/o retroperitoneal bleed lactic acidosis abn ekg ? LVH hypertensive heart ds vs ischemia mildly elevated tnis no cp htn plan f/u ekg icu monitoring bb bp control MIBI st prior to discharge cc time spent 35 min
--- NOTE | 2018-03-13 15:09 | PN ---
Teaching Attending Note Name of Resident: Tatyana Zepeda ATTENDING PHYSICIAN STATEMENT I saw and evaluated the patient. I reviewed the resident's note and discussed the case with the resident. I agree with the resident's findings and plan as documented. SUBJECTIVE: Pt seen and examined in the ICU. Still with RUQ pain. No fevers or chills. No shortness of breath or chest pain. OBJECTIVE: Last Vital Signs Temp Pulse Resp BP Pulse Ox 98.2 F 67 18 123/57 96 03/13/18 14:38 03/13/18 14:38 03/13/18 14:38 03/13/18 14:38 03/13/18 09:00 Intake & Output 03/10/18 03/11/18 03/12/18 03/13/18 23:59 23:59 23:59 23:59 Intake Total 75 1995 1000 Output Total 950 Balance 75 1045 1000 Weight 51.347 kg 52.2 kg Gen: NAD at rest Heart: RRR Lung: decreased breath sounds at the bases Abd: RUQ TTP Ext: no edema CBC, BMP 03/13/18 05:40 03/13/18 05:40 Active Medications Acetaminophen (Tylenol -) 650 mg PO Q6H PRN PRN Reason: PAIN Chlorhexidine Gluconate (Hibiclens For Decolonization -) 1 applic TP HS [facility] Metoprolol Tartrate (Lopressor -) 25 mg PO BID [facility] Metoprolol Tartrate (Lopressor Injection -) 10 mg IVPUSH Q6H PRN PRN Reason: HYPERTENSION Mupirocin (Bactroban Ointment (For Decolonization) -) 1 applic NS BID [facility] Stop: 03/16/18 21:59 Potassium Chloride (Potassium Chloride Oral Liquid) 40 meq PO BID [facility] Stop: 03/13/18 22:01 ASSESSMENT AND PLAN: Hypertensive Urgency improved Right Adrenal Hematoma vs Mass - pain control - incentive spirometry - monitor H/H - for repeat imaging tomorrow - replete lytes - DVT prophylaxis - can monitor on telemetry
[2018-03-13] MEDS: ACETAMINOPHEN 325 MG TABLET (FP) PO PRN (17:07)
[2018-03-13] MEDS ORDERED: CHLORHEXIDINE GLUCONATE 4% CLEANSER FOR DECOLONIZATION TP SCH (22:00)
[2018-03-13] MEDS ORDERED: MUPIROCIN 2% TOPICAL OINTMENT FOR DECOLONIZATION NS SCH (22:00)
[2018-03-14 06:58] LABS: BASO % 0.2 % (0-2.0); EOS % 1.4 % (0-4.5); HEMATOCRIT 37.2 % (32.4-45.2); HEMOGLOBIN 12.7 GM/dL (10.7-15.3); LYMPH % 25.1 % (8-40); MCH 31.9 pg (25.7-33.7); MCHC 34.1 g/dl (32.0-36.0); MEAN CELL VOLUME 93.6 fl (80-96); MEAN PLT VOLUME 11.2 fl (7.5-11.1); MONO % 6.8 % (3.8-10.2); NEUT % 66.5 % (42.8-82.8); PLATELET COUNT 87 K/MM3 (134-434); RBC 3.97 M/mm3 (3.60-5.2); RDW 14.3 % (11.6-15.6); WHITE BLOOD COUNT 7.4 K/mm3 (4.0-10.0)
[2018-03-14 07:13] LABS: INR 1.07 (0.82-1.09); PROTHROMBIN TIME (PATIENT) 12.1 SEC (9.7-13.0)
[2018-03-14 07:16] LABS: ACTIVATED PTT 28.1 SECONDS (26.9-34.4)
--- NOTE | 2018-03-14 07:20 | PN ---
Physical Exam: SUBJECTIVE: Patient seen and examined. Seen wandering off her bed today, patient has amnesia. Still having abdominal pain. Said to have refused tylenol earlier. OBJECTIVE: Vital Signs Period Temp Pulse Resp BP Sys/Horton Pulse Ox Last 24 Hr 97.7 F-98.8 F 56-69 14-18 110-154/52-80 95-96 Vital Signs Temp 97.7 F 03/14/18 05:00 Pulse 60 03/14/18 05:00 Resp 17 03/14/18 05:00 BP 139/80 03/14/18 05:00 Pulse Ox 95 03/13/18 21:00 Intake & Output 03/13/18 03/13/18 03/14/18 11:59 23:59 11:59 Intake Total 1000 170 480 Balance 1000 170 480 Weight 52.2 kg 54.613 kg Intake: IV 900 10 D5-Ns - 1,000 ml @ 75 mls 900 10 /hr IV ASDIR SANIA Rx#: [id number] Oral 100 160 480 Other: Voiding Method Bedpan Bedpan Toilet # Unmeasured Voids Void 1 1 1 Bowel Movement No No Weight Measurement Method Built in Bedscale Standing Scale GENERAL: The patient is awake, alert, and fully oriented, in no acute respiratory distress. ENT: moist mucous membranes. LUNGS: Breath sounds equal, clear to auscultation bilaterally HEART: Regular rate and rhythm, S1, S2 ABDOMEN: No ecchimosis or bruise, Soft, tender RLQ and flank, nondistended, normoactive bowel sounds EXTREMITIES: 2+ pulses, warm, well-perfused, no edema. NEUROLOGICAL: Normal speech, normal gait. No facial droop. Laboratory Results - last 24 hr 03/13/18 14:05 Creatine Kinase 41 Troponin I 0.11 H Active Medications Generic Name Dose Route Start Last Admin Trade Name Freq PRN Reason Stop Dose Admin Acetaminophen 650 mg 03/13/18 11:59 03/13/18 17:07 Tylenol - PO 650 mg Q6H PRN Administration PAIN Chlorhexidine Gluconate 1 applic 03/13/18 22:00 03/13/18 21:34 Hibiclens For Decolonization - TP Not Given HS [facility]IA Metoprolol Tartrate 25 mg 03/13/18 22:00 03/13/18 21:23 Lopressor - PO 25 mg BID [facility]IA Administration Metoprolol Tartrate 10 mg 05/14/18 12:08 Lopressor Injection - IVPUSH Q6H PRN HYPERTENSION Mupirocin 1 applic 03/13/18 22:00 03/13/18 21:34 Bactroban Ointment (For Decolonization) - NS 03/16/18 21:59 Not Given BID [facility]IA CT_ abd pelvis w/contrast 03/11/18: Mild atelectatic changes at lung bases. Complex fluid in hepatorenal space compartible with hematoma vs mass of R adrenal gland 3.8 x 2.7 cm axiallly. Bilateral subcentimeter renal cortical hypodensities, likely cysts. Absent gall bladder. Moderate fecal retention in colon. N appendix. Atrophic/absent uterus. For repeat CT/abd w/o contrast 03/14/18-No change in enlarged R adrenal gland in approximate size and density significant improvement in soft tissue changes in the R perinephric space. Mild free fluid in pelvis. ASSESSMENT/PLAN: 82 yo F with no significant PMHx presented s/p abdominal trauma, with abdominal pain found to have retroperitoneal hematoma/r/o mass R Flank pain: -CT abdomen/pelvis visiualized complex fluid in the hepatorenal space compatible with blood with hematoma versus mass of the right adrenal gland measuring 3.8 x 2.7 cm axially- -Surgery-Dr Escalante was consulted and recommended to monitor the patient in ICU overnight with monitoring H/H -off IVF -will continue with pain control: tylenol -elevated LA to 2.5- resolved -No change in H&H- pt has stable vitals -in tele -For repeat CT/abd w/o contrast - done today- soft tissue mass resolved, adrenal mass unchanged Hypertensive urgency: -Resolved -possibly due to pain, Morphine -not on any home meds -BP elevated to 194/89 on presentation. -Lopressor 10 mg on hold for stress test in am -If high today, give calcium channel blockers because of stress test - EKG changes: -the patient had st depression in v1-v3 -possible LVH -troponins trended down Troponinemia: -Peaked, now normal Bladder obstruction: -not complaining of any dysuria, based on CT -will monitor Leukocytosis: -WBC 15.9- resolved -will monitor for signs of infections DVT PPX: -scds no Heparin F/E/N: D5NS- stopped NPO after midnight for stress test in am Monitor Jo-Ann Dispo: For D/C in am after stress test Visit type - Emergency Visit Emergency Visit: Yes ED Registration Date: 03/11/18 Care time: The patient presented to the Emergency Department on the above date and was hospitalized for further evaluation of their emergent condition. - New Patient This patient is new to me today: No - Critical Care Critical Care patient: No - Discharge Referral Referred to [facility] No
[2018-03-14 07:29] LABS: CALCIUM 8.5 mg/dL (8.5-10.1); CHLORIDE 108 mmol/L (98-107); POTASSIUM 3.9 mmol/L (3.5-5.1); SODIUM 142 mmol/L (136-145)
[2018-03-14 07:35] LABS: ALK PHOS 90 U/L (45-117); ANION GAP 6 (8-16); BILIRUBIN,TOTAL 0.7 mg/dL (0.2-1.0); BLOOD UREA NITROGEN 14 mg/dL (7-18); CO2 28 mmol/L (21-32); CREATININE 0.4 mg/dL (0.55-1.02); GLUCOSE,RANDOM 83 mg/dL (74-106); MAGNESIUM 2.2 mg/dL (1.8-2.4); PHOSPHOROUS 2.9 mg/dL (2.5-4.9); SGOT/AST 20 U/L (15-37); SGPT/ALT 8 U/L (12-78); TOT PROT 5.9 g/dl (6.4-8.2)
[2018-03-14] MEDS: METOPROLOL TARTRATE 25 MG TABLET (FP) PO SCH (09:53)
--- NOTE | 2018-03-14 11:32 | PN ---
Progress Note, Physician Chief Complaint: Pt c/o right lateral thoracic pain. Knows it is February; knows she is in [facility]; thinks the year is 1989; does not know the date. History of Present Illness: Ms. Quiroga is an 82 yo female w/ no pmh who presents for evaluation of abdominal pain for the last day. She reports she had a mechanical fall yesterday (confirmed by daughter who is with her) and fell onto a chair; making contact with her RLQ. She denies any LOC or head injury. Ms. Qurioga was initially ok but reports she required tylenol before bed and pain has increased today; she also does not have any appetite now and reports this is unusual. Allergies: NKDA - Current Medication List Current Medications: Active Medications Acetaminophen (Tylenol -) 650 mg PO Q6H PRN PRN Reason: PAIN Last Admin: 03/13/18 17:07 Dose: 650 mg Metoprolol Tartrate (Lopressor -) 25 mg PO BID [facility] Last Admin: 03/14/18 09:53 Dose: 25 mg Metoprolol Tartrate (Lopressor Injection -) 10 mg IVPUSH Q6H PRN PRN Reason: HYPERTENSION - Objective Vital Signs: Vital Signs Temperature 97.7 F 03/14/18 05:00 Pulse Rate 60 03/14/18 05:00 Respiratory Rate 17 03/14/18 05:00 Blood Pressure 139/80 03/14/18 05:00 O2 Sat by Pulse Oximetry (%) 95 03/13/18 21:00 Eyes: Yes: WNL HENT: Yes: WNL Neck: Yes: WNL Labs: CBC, BMP 03/14/18 06:35 03/14/18 06:35 INR, PTT INR 1.07 (0.82-1.09) 03/14/18 06:35 Problem List - Problems (1) Elevated troponin Assessment/Plan: Peaked at 0.6; normal CK. EKG: no acute STT changes. ECHO: normal LVEF. TSH and lipids pending. For Lexicscan stress MIBI. Code(s): R74.8 - ABNORMAL LEVELS OF OTHER SERUM ENZYMES (2) Fall from ground level Assessment/Plan: Pt says she falls frequently, but says this is the only time she lost conscioiusness. Abdominal CT pending. Code(s): W18.30XA - FALL ON SAME LEVEL, UNSPECIFIED, INITIAL ENCOUNTER (3) Hemoperitoneum Code(s): K66.1 - HEMOPERITONEUM (4) Memory impairment Code(s): R41.3 - OTHER AMNESIA
--- NOTE | 2018-03-14 14:10 | PN ---
Teaching Attending Note Name of Resident: Ghazal Sofie Hall ATTENDING PHYSICIAN STATEMENT I saw and evaluated the patient. I reviewed the resident's note and discussed the case with the resident. I agree with the resident's findings and plan as documented. SUBJECTIVE:c/o R low back pain. worse on movement. unable to say if worse than yesterday. does not recall falling prior to admission. admits to falling frequently however does not recall prior to admission. denies Cp, SOB, fever, chills, N/V/C/D or CP OBJECTIVE: Last Vital Signs Temp Pulse Resp BP Pulse Ox 97.7 F 60 17 139/80 95 03/14/18 05:00 03/14/18 05:00 03/14/18 05:00 03/14/18 05:00 03/13/18 21:00 General NAD CV S1 S2 RRR no murmur/rub/gallop Lungs CTA B/L no wheezing/rales/rhonchi Abdomen soft NT/ND no flank tenderness or ecchymosis, no muscles spams no bone point tenderness of muscular tenderness ASSESSMENT AND PLAN: 82 yo F with no significant PMHx presented s/p abdominal trauma, with abdominal pain found to have retroperitoneal hematoma/r/o mass 1. R flank pain- due to R adrenal mass vs hematoma. repeat CT scan showing adrenal size has not changed however the surrounding fluid accumulation which was suspected to be hematoma has resolved. will give tylenol for pain and re- evaluate if improved. will need to f/u as outpatient for monitoring of adrenal size and functioning. 2. HTN urgency- likely pain induced. has not required any antihypertensives in past 24H. will cont to hold 3. EKG changes- ST depressions V1-V3 with slight troponenemia. will go for NMST tomorrow prior to discharge. cardio on board. 4. Leukocytosis- no sign of infection. now resolved 5. Bladder obstruction- no signs of obstruction. urinating freely. 6. DVT ppx- SCD. heparin was held with hematoma 7. PT assessment. plan for NMST in the AM if negative can d/c home
[2018-03-14 16:01] LABS: CHOLESTEROL 130 mg/dL (50-200); HDL CHOLESTEROL 32 mg/dL (40-60); TRIGLYCERIDES 121 mg/dL (35-160)
[2018-03-15] MEDS ORDERED: amLODIPine BESYLATE 5 MG TABLET (FP) PO ONE (07:27)
--- NOTE | 2018-03-15 07:51 | PN ---
Physical Exam: SUBJECTIVE: Patient seen and examined. Said to have still been wandering yesterday. Was folding clothes, thinks she is at home. Spoke with daughter yesterday about the wandering and they assured she has 24hr monitoring at home and will not need a SNF or VNS or home health aide. She got a one to one because she removed the bed alarm and her iv. Pending stress test for this am, then likely discharge. OBJECTIVE: Vital Signs Period Temp Pulse Resp BP Sys/Horton Pulse Ox Last 24 Hr 97.9 F-98.8 F 56-69 18-18 123-187/61-85 95-97 GENERAL: The patient is awake, alert, confused, in no acute distress. HEAD: Normal with no signs of trauma. ENT: moist mucous membranes. NECK: supple. LUNGS: Breath sounds equal, clear to auscultation bilaterally HEART: Regular rate and rhythm, S1, S2 ABDOMEN: Soft, tender R flank, nondistended, normoactive bowel sounds EXTREMITIES: 2+ pulses, warm, well-perfused, no edema. NEUROLOGICAL: Cranial nerves II through XII grossly intact. Normal speech, normal gait Laboratory Results - last 24 hr 03/14/18 03/14/18 03/14/18 06:35 06:35 06:35 WBC 7.4 RBC 3.97 Hgb 12.7 Hct 37.2 MCV 93.6 MCH 31.9 MCHC 34.1 RDW 14.3 Plt Count 87 L MPV 11.2 H Neutrophils % 66.5 Lymphocytes % 25.1 D Monocytes % 6.8 Eosinophils % 1.4 D Basophils % 0.2 Sodium 142 Potassium 3.9 Chloride 108 H Carbon Dioxide 28 Anion Gap 6 L BUN 14 Creatinine 0.4 L Creat Clearance w eGFR > 60 Random Glucose 83 Calcium 8.5 Phosphorus 2.9 Magnesium 2.2 Total Bilirubin 0.7 D AST 20 ALT 8 L Alkaline Phosphatase 90 Total Protein 5.9 L Albumin 3.0 L Triglycerides 121 Cancelled Cholesterol 130 Cancelled Total LDL Cholesterol 90 Cancelled HDL Cholesterol 32 L Cancelled TSH 1.41 Cancelled Active Medications Generic Name Dose Route Start Last Admin Trade Name Freq PRN Reason Stop Dose Admin Acetaminophen 650 mg 03/13/18 11:59 03/13/18 17:07 Tylenol - PO 650 mg Q6H PRN Administration PAIN Metoprolol Tartrate 25 mg 03/13/18 22:00 03/14/18 09:53 Lopressor - PO 25 mg BID SANIA Administration Metoprolol Tartrate 10 mg 03/13/18 12:08 Lopressor Injection - IVPUSH Q6H PRN HYPERTENSION Granddaughter- [phone] CT_ abd pelvis w/contrast 03/11/18: Mild atelectatic changes at lung bases. Complex fluid in hepatorenal space compartible with hematoma vs mass of R adrenal gland 3.8 x 2.7 cm axiallly. Bilateral subcentimeter renal cortical hypodensities, likely cysts. Absent gall bladder. Moderate fecal retention in colon. N appendix. Atrophic/absent uterus. For repeat CT/abd w/o contrast 03/14/18-No change in enlarged R adrenal gland in approximate size and density significant improvement in soft tissue changes in the R perinephric space. Mild free fluid in pelvis. ASSESSMENT/PLAN: 82 yo F with no significant PMHx presented s/p abdominal trauma, with abdominal pain found to have retroperitoneal hematoma/r/o mass R Flank pain: -CT abdomen/pelvis visiualized complex fluid in the hepatorenal space compatible with blood with hematoma versus mass of the right adrenal gland measuring 3.8 x 2.7 cm axially- -Surgery-Dr Escalante was consulted and recommended to monitor the patient in ICU overnight with monitoring H/H -off IVF -will continue with pain control: tylenol -elevated LA to 2.5- resolved -No change in H&H- pt has stable vitals -in tele -For repeat CT/abd w/o contrast - done - soft tissue mass resolved, adrenal mass unchanged Amnesia/Confusion: D/W Granddaughter, Kalie, pt moved in with her about 1 year ago after the of pt's when pt became confused Pt is confused at baseline, but not to the extent we described Kalie declined further mx e.g psych consult or imaging saying that she believes the confusion is worsened by change of environment and should improve when pt returns home to familiar environment. Hypertensive urgency: -Resolved -possibly due to pain, Morphine -not on any home meds -BP elevated to 194/89 on presentation. -Lopressor 10 mg on hold for stress test in am -If high today, give calcium channel blockers because of stress test -Was unable to get stress test since pt is not competent and no consent was available as granddaughter could not be reached -D/W Dr Bautista- Plan is to try again for stress test tomorrow except family decides against against. EKG changes: -the patient had st depression in v1-v3 -possible LVH -troponins trended down Troponinemia: -Peaked, now normal Bladder obstruction: -not complaining of any dysuria, based on CT -will monitor Leukocytosis: -WBC 15.9- resolved -will monitor for signs of infections Dispo: For discharge following stress test tomorrow Visit type - Emergency Visit Emergency Visit: Yes ED Registration Date: 03/11/18 Care time: The patient presented to the Emergency Department on the above date and was hospitalized for further evaluation of their emergent condition. - New Patient This patient is new to me today: No - Critical Care Critical Care patient: No - Discharge Referral Referred to [facility] Med [facility] No
[2018-03-15] MEDS ORDERED: REGADENOSON 0.4 MG/5 ML PRE-FILLED SYRINGE IVPUSH ONE (10:00)
--- NOTE | 2018-03-15 11:07 | PN ---
Progress Note, Physician History of Present Illness: Ms. Quiroga is an 82 yo female w/ no pmh who presents for evaluation of abdominal pain for the last day. She reports she had a mechanical fall yesterday (confirmed by daughter who is with her) and fell onto a chair; making contact with her RLQ. She denies any LOC or head injury. Ms. Quiroga was initially ok but reports she required tylenol before bed and pain has increased today; she also does not have any appetite now and reports this is unusual. The patient denies chest pain, shortness of breath, headache and dizziness. Denies fever, chills, nausea, vomit, diarrhea and constipation. Denies dysuria, frequency, urgency and hematuria. Allergies: NKDA 82 abraham with no significant PMHx has no PCP and takes no home meds who was brought in by granddaughter with c/o increasing rt abd pain after a mechanical fall at home. As per family pt lost balance at home and hit her rt flank on couch. There was no report of LOC, dizziness, lightheadedness, chest pain, SOB, fever, chills. No head trauma. The patient then complained of intermittent sharp pain right sided pain radiating to the back, 6/10 which was relieved by tylenol. Pt was brought in the next day with worsening abd pain and loss of appetite. In the ED T 98.6, HR 91, RR 18 BP 160/100, O2 sat 100% 0n room air. She had two small episodes of non bilious non bloody emesis. Labs notable for WBC 16.7,H/H 15.9/46.1, trop0.5->0.68, lactate 2.[address] depressions in V3-V6. CT abd pelvis preliminary read c/f fluid collection vs mass near rt adrenal. Surgery and cardiology was consulted. Recommended ICU monitoring for intra-abd bleed and ACS. Pt was transferred to ICU. In the ICU A+Ox3, HR 69, BP 178/80, O2sat 97% on room air. C/o Rt chest pain and Rt flank pain 5/10 relieved by Morphine IV. No bruising, no abd tenderness or mass noted on exam. No c/o abd pain. Granddaughter states pt lives with her, has some memory loss but is independent of ADLs. - Current Medication List Current Medications: Active Medications Acetaminophen (Tylenol -) 650 mg PO Q6H PRN PRN Reason: PAIN Last Admin: 03/13/18 17:07 Dose: 650 mg Metoprolol Tartrate (Lopressor -) 25 mg PO BID SANIA Last Admin: 03/14/18 09:53 Dose: 25 mg Metoprolol Tartrate (Lopressor Injection -) 10 mg IVPUSH Q6H PRN PRN Reason: HYPERTENSION - Objective Vital Signs: Vital Signs Temperature 97.7 F 03/15/18 09:00 Pulse Rate 60 03/15/18 09:00 Respiratory Rate 18 03/15/18 09:00 Blood Pressure 140/64 03/15/18 09:00 O2 Sat by Pulse Oximetry (%) 97 03/15/18 09:00 Eyes: Yes: WNL, Conjunctiva Clear, EOM Intact HENT: Yes: WNL, Atraumatic, Normocephalic Neck: Yes: WNL, Supple, Trachea Midline Cardiovascular: Yes: WNL, Regular Rate and Rhythm Respiratory: Yes: WNL, Regular, CTA Bilaterally Gastrointestinal: Yes: WNL, Normal Bowel Sounds Genitourinary: Yes: WNL Musculoskeletal: Yes: WNL Extremities: Yes: WNL Edema: No Integumentary: Yes: WNL Neurological: Yes: WNL, Alert, Oriented ...Motor Strength: WNL Psychiatric: Yes: WNL Labs: CBC, BMP 03/14/18 06:35 03/14/18 06:35 INR, PTT INR 1.07 (0.82-1.09) 03/14/18 06:35 Problem List - Problems (1) Elevated troponin Code(s): R74.8 - ABNORMAL LEVELS OF OTHER SERUM ENZYMES (2) Fall from ground level Code(s): W18.30XA - FALL ON SAME LEVEL, UNSPECIFIED, INITIAL ENCOUNTER (3) Hemoperitoneum Code(s): K66.1 - HEMOPERITONEUM (4) Memory impairment Code(s): R41.3 - OTHER AMNESIA Assessment/Plan - Problems (1) Elevated troponin Assessment/Plan: Peaked at 0.6; normal CK. EKG: no acute STT changes. ECHO: normal LVEF. TSH and lipids pending. For Lexicscan stress MIBI. Code(s): R74.8 - ABNORMAL LEVELS OF OTHER SERUM ENZYMES (2) Fall from ground level Assessment/Plan: Pt says she falls frequently, but says this is the only time she lost conscioiusness. Abdominal CT pending. Code(s): W18.30XA - FALL ON SAME LEVEL, UNSPECIFIED, INITIAL ENCOUNTER (3) Hemoperitoneum Code(s): K66.1 - HEMOPERITONEUM (4) Memory impairment Code(s): R41.3 - OTHER AMNESIA
--- NOTE | 2018-03-15 12:05 | PN ---
Teaching Attending Note Name of Resident: Ghazal Hall ATTENDING PHYSICIAN STATEMENT I saw and evaluated the patient. I reviewed the resident's note and discussed the case with the resident. I agree with the resident's findings and plan as documented. SUBJECTIVE:continues to have intermittent R flank pain that is relieved with tylenol. denies Cp, SOB, fever, chills, N/V/C/D OBJECTIVE: Last Vital Signs Temp Pulse Resp BP Pulse Ox 97.7 F 60 18 140/64 97 03/15/18 09:00 03/15/18 09:00 03/15/18 09:00 03/15/18 09:00 03/15/18 09:00 General NAD CV S1 S2 RRR no murmur/rub/gallop Abdomen soft NT/ND no flank tenderness or ecchymosis, no muscles spams no bone point tenderness of muscular tenderness ASSESSMENT AND PLAN: 82 yo F with no significant PMHx presented s/p abdominal trauma, with abdominal pain found to have retroperitoneal hematoma/r/o mass 1. R flank pain- due to R adrenal mass vs hematoma. repeat CT scan showing adrenal size has not changed however the surrounding fluid accumulation which was suspected to be hematoma has resolved. cont tylenol prn. will need to f/u as outpatient for monitoring of adrenal size and functioning. 2. HTN urgency- likely pain induced. has not required any antihypertensives in past 24H. will cont to hold 3. EKG changes- ST depressions V1-V3 with slight troponenemia. NMST today. cardio on board. 4. Leukocytosis- no sign of infection. now resolved 5. Bladder obstruction- no signs of obstruction. urinating freely. 6. DVT ppx- SCD. heparin was held with hematoma 7. PT assessment. can d/c home if NMST negative
[2018-03-16 08:37] VITALS: PULSE 66
[2018-03-16] MEDS ORDERED: REGADENOSON 0.4 MG/5 ML PRE-FILLED SYRINGE IVPUSH ONE ×2 (09:30→11:14)
--- NOTE | 2018-03-16 11:03 | PN ---
Teaching Attending Note Name of Resident: Ghazal Hall ATTENDING PHYSICIAN STATEMENT I saw and evaluated the patient. I reviewed the resident's note and discussed the case with the resident. I agree with the resident's findings and plan as documented. SUBJECTIVE:continues to have R flank pain improves with tylenol. denies CP or SOB stress echo was cancelled yesterday due to lack of consent OBJECTIVE: Last Vital Signs Temp Pulse Resp BP Pulse Ox 97.9 F 66 18 137/73 98 03/16/18 08:36 03/16/18 08:36 03/16/18 08:37 03/16/18 08:36 03/16/18 08:37 General NAD Abdomen soft NT/ND no flank tenderness or ecchymosis, no muscles spams no bone point tenderness of muscular tenderness ASSESSMENT AND PLAN: 82 yo F with no significant PMHx presented s/p abdominal trauma, with abdominal pain found to have retroperitoneal hematoma/r/o mass 1. R flank pain- due to R adrenal mass vs hematoma. repeat CT scan showing adrenal size has not changed however the surrounding fluid accumulation which was suspected to be hematoma has resolved. cont tylenol prn. will need to f/u as outpatient for monitoring of adrenal size and functioning. 2. HTN urgency- above goal. will re-start metoprolol to optimize BP 3. EKG changes- ST depressions V1-V3 with slight troponenemia. NMST today. cardio on board. 4. Leukocytosis- no sign of infection. now resolved 5. Bladder obstruction- no signs of obstruction. urinating freely. 6. DVT ppx- SCD. heparin was held with hematoma 7. PT assessment. can d/c home if NMST negative
[2018-03-16] MEDS: ACETAMINOPHEN 325 MG TABLET (FP) PO PRN (12:39)
--- NOTE | 2018-03-16 13:11 | PN ---
Progress Note (short form) - Note Progress Note: Overall right flank pain is improving. No CP or SOB. Intake & Output 03/13/18 03/14/18 03/15/18 03/16/18 23:59 23:59 23:59 23:59 Intake Total 1170 1080 570 10 Balance 1170 1080 570 10 Weight 115 lb 1.301 oz 120 lb 6.4 oz 120 lb 6.4 oz 118 lb 9.6 oz Last Vital Signs Temp Pulse Resp BP Pulse Ox 97.9 F 66 18 137/73 98 03/16/18 08:36 03/16/18 08:36 03/16/18 08:37 03/16/18 08:36 03/16/18 08:37 Active Medications Acetaminophen (Tylenol -) 650 mg PO Q6H PRN PRN Reason: PAIN Last Admin: 03/16/18 12:39 Dose: 650 mg Constitutional: Yes: Well Nourished, No Distress Eyes: Yes: WNL, PERRL HENT: Yes: Atraumatic, Normocephalic Neck: Yes: Supple, Trachea Midline Cardiovascular: Yes: Regular Rate and Rhythm, S1, S2 Respiratory: Yes: WNL, Regular, CTA Bilaterally Gastrointestinal: Yes: Normal Bowel Sounds, Soft Renal/: Yes: WNL Musculoskeletal: Yes: Right Flank Pain Edema: No Peripheral Pulses WNL: Yes Integumentary: Yes: WNL Neurological: Yes: Alert, Oriented, Non-focal ...Motor Strength: WNL Psychiatric: Yes: Alert, Oriented Labs: Problem List - Problems (1) Elevated troponin Code(s): R74.8 - ABNORMAL LEVELS OF OTHER SERUM ENZYMES (2) Fall from ground level Code(s): W18.30XA - FALL ON SAME LEVEL, UNSPECIFIED, INITIAL ENCOUNTER (3) Hemoperitoneum Code(s): K66.1 - HEMOPERITONEUM (4) Memory impairment Code(s): R41.3 - OTHER AMNESIA Assessment/Plan Resolving Hematoma Adrenal mass Suspected demand ischemia Leukocytosis Plan: Pain control with Tylenol. Incentive Spirometry D/C planning Dr Ching
--- NOTE | 2018-03-16 16:34 | DS ---
Physical Exam: SUBJECTIVE: Patient seen and examined. Did not wander overnight. Was able to sleep through the night. OBJECTIVE: Vital Signs Period Temp Pulse Resp BP Sys/[place] Pulse Ox Last 24 Hr 97.5 F-98.8 F 64-84 16-18 121-146/60-81 97-98 Vital Signs Temp 98.3 F 03/16/18 14:00 Pulse 66 03/16/18 14:00 Resp 18 03/16/18 08:37 BP 139/71 03/16/18 14:00 Pulse Ox 98 03/16/18 08:37 03/16/18 03/16/18 08:37 14:00 Temperature 98.3 F Pulse Rate 66 Respiratory 18 Rate Blood Pressure 139/71 O2 Sat by Pulse 98 Oximetry (%) PHYSICAL EXAM GENERAL: The patient is awake, in no acute respiratory distress. ENT: moist mucous membranes. NECK: full range of motion, supple. LUNGS: Breath sounds equal, clear to auscultation bilaterally, no wheezes, no crackles. HEART: Regular rate and rhythm, S1, S2 . ABDOMEN: Soft, tender L flank, nondistended, normoactive bowel sounds EXTREMITIES: 2+ pulses, warm, well-perfused, no edema. NEUROLOGICAL: Normal speech, no facial droop,muscle strength 5/5 globally, normal gait . LABS CBC, BMP 03/14/18 06:35 03/14/18 06:35 Laboratory Last Values WBC 7.4 K/mm3 (4.0-10.0) 03/14/18 06:35 RBC 3.97 M/mm3 (3.60-5.2) 03/14/18 06:35 Hgb 12.7 GM/dL (10.7-15.3) 03/14/18 06:35 Hct 37.2 % (32.4-45.2) 03/14/18 06:35 MCV 93.6 fl (80-96) 03/14/18 06:35 MCH 31.9 pg (25.7-33.7) 03/14/18 06:35 MCHC 34.1 g/dl (32.0-36.0) 03/14/18 06:35 RDW 14.3 % (11.6-15.6) 03/14/18 06:35 Plt Count 87 K/MM3 (134-434) L 03/14/18 06:35 MPV 11.2 fl (7.5-11.1) H 03/14/18 06:35 Neutrophils % 66.5 % (42.8-82.8) 03/14/18 06:35 Lymphocytes % 25.1 % (8-40) D 03/14/18 06:35 Monocytes % 6.8 % (3.8-10.2) 03/14/18 06:35 Eosinophils % 1.4 % (0-4.5) D 03/14/18 06:35 Basophils % 0.2 % (0-2.0) 03/14/18 06:35 PT with INR 12.10 SEC (9.7-13.0) 03/14/18 06:35 INR 1.07 (0.82-1.09) 03/14/18 06:35 PTT (Actin FS) 28.1 SECONDS (26.9-34.4) 03/14/18 06:35 Sodium 142 mmol/L (136-145) 03/14/18 06:35 Potassium 3.9 mmol/L (3.5-5.1) 03/14/18 06:35 Chloride 108 mmol/L (98-107) H 03/14/18 06:35 Carbon Dioxide 28 mmol/L (21-32) 03/14/18 06:35 Anion Gap 6 (8-16) L 03/14/18 06:35 BUN 14 mg/dL (7-18) 03/14/18 06:35 Creatinine 0.4 mg/dL (0.55-1.02) L 03/14/18 06:35 Creat Clearance w eGFR > 60 (>60) 03/14/18 06:35 Random Glucose 83 mg/dL (74-106) 03/14/18 06:35 Lactic Acid 1.7 mmol/L (0.0-2.0) 03/12/18 07:15 Calcium 8.5 mg/dL (8.5-10.1) 03/14/18 06:35 Phosphorus 2.9 mg/dL (2.5-4.9) 03/14/18 06:35 Magnesium 2.2 mg/dL (1.8-2.4) 03/14/18 06:35 Total Bilirubin 0.7 mg/dL (0.2-1.0) D 03/14/18 06:35 AST 20 U/L (15-37) 03/14/18 06:35 ALT 8 U/L (12-78) L 03/14/18 06:35 Alkaline Phosphatase 90 U/L (45-117) 03/14/18 06:35 Creatine Kinase 41 IU/L (26-192) 03/13/18 14:05 Troponin I 0.11 ng/ml (0.00-0.05) H 03/13/18 14:05 Total Protein 5.9 g/dl (6.4-8.2) L 03/14/18 06:35 Albumin 3.0 g/dl (3.4-5.0) L 03/14/18 06:35 Triglycerides 121 mg/dL (35-160) 03/14/18 06:35 Cholesterol 130 mg/dL (50-200) 03/14/18 06:35 Total LDL Cholesterol 90 mg/dL (5-100) 03/14/18 06:35 HDL Cholesterol 32 mg/dL (40-60) L 03/14/18 06:35 Lipase 95 U/L (73-393) 03/11/18 12:57 TSH 1.41 uIU/ml (0.358-3.74) 03/14/18 06:35 Urine Color Yellow 03/12/18 07:00 Urine Appearance Clear 03/12/18 07:00 Urine pH 6.0 (5.0-8.0) 03/12/18 07:00 Ur Specific [place] 1.026 (1.001-1.035) 03/12/18 07:00 Urine Protein 2+ (NEGATIVE) H 03/12/18 07:00 Urine Glucose (UA) 1+ (NEGATIVE) H 03/12/18 07:00 Urine Ketones Trace (NEGATIVE) H 03/12/18 07:00 Urine Blood 1+ (NEGATIVE) H 03/12/18 07:00 Urine Nitrite Negative (NEGATIVE) 03/12/18 07:00 Urine Bilirubin Negative (<2.0 mg/dL) 03/12/18 07:00 Urine Urobilinogen 4.0 e.u/dl mg/dL (0.2-1.0) H 03/12/18 07:00 Ur Leukocyte Esterase Negative (NEGATIVE) 03/12/18 07:00 Urine WBC (Auto) 5 /hpf (3-5) 03/12/18 07:00 Urine RBC (Auto) 10 /hpf (0-3) 03/12/18 07:00 Ur Epithelial Cells Rare /HPF (FEW) 03/12/18 07:00 Hyaline Casts 1 /lpf 03/12/18 07:00 Urine Mucus Rare 03/12/18 07:00 Blood Type O POSITIVE 03/11/18 15:34 Antibody Screen Negative 03/11/18 12:43 Laboratory Tests 03/11/18 03/12/18 03/12/18 20:01 00:01 17:25 Troponin I 0.68 H* 0.74 H* 0.35 H 03/13/18 14:05 Troponin I 0.11 H Granddaughter's number Kalie [phone]- abd pelvis w/contrast 03/11/18: Mild atelectatic changes at lung bases. Complex fluid in hepatorenal space compartible with hematoma vs mass of R adrenal gland 3.8 x 2.7 cm axiallly. Bilateral subcentimeter renal cortical hypodensities, likely cysts. Absent gall bladder. Moderate fecal retention in colon. N appendix. Atrophic/absent uterus. Repeat CT/abd w/o contrast 03/14/18-No change in enlarged R adrenal gland in approximate size and density significant improvement in soft tissue changes in the R perinephric space. Mild free fluid in pelvis. ECHO 03/13/18: LV normal, LV systolic function normal . EF-65-70% . No regional wall abnormalities noted. Mild TR, AR, NM. No pericardial effusion. Stress Test 03/17/18: EKG stress test equivocal, Ragadenoson stress test: normal myocardial perfusion. [id number] HOSPITAL COURSE: Date of Admission:03/11/18 Date of Discharge: 03/16/18 Prehospital course: 82 yo F with no significant PMHx presented s/p abdominal trauma, with abdominal pain found to have retroperitoneal hematoma/r/o mass. Hospital course: Abdominal mass: Initial CT abdomen 03/11 showed: Complex fluid in hepatorenal space compartible with hematoma vs mass of R adrenal gland 3.8 x 2.7 cm axially. See above for full report. She was managed conservatively for blood loss with no change in H& H. She received morphine initially for the pain and then the pain was managed with tylenol. Repeat CT/abd w/o contrast - 03/14/18 - soft tissue mass resolved , adrenal mass unchanged. Pt is to follow up with her PCP for the adrenal mass and continue pain mx with tylenol as needed. Hypertensive urgency: Patient came in after not following a physician for a while with no known medical hx and was found to have hypertensive urgency with BP elevated to 194/ 89 on presentation. She was managed with iv lopressor 5mg then maintained on Lopressor 10 mg bid. She was off lopressor for her stress test and needed a dose of Norvasc 5mg. The hypertensive urgency resolved while here. EKG changes: The patient had st depression in v1-v3 and was noted for possible LVH. The st depressions resolved. troponins were followed concurrently. Troponinemia: The patient came in with a troponin of 0.68, which peaked at 0.74 then trended down to 0.11. Amnesia/Confusion: Pt was found to be increasingly confused while here, and wandering. She was put on a bed alarm that she took off and ended up with one to one for a night on the floors. Per the granddaughter-Pt is confused at baseline, but not to the extent we described. D/W Granddaughter, Kalie, pt moved in with her about 1 year ago after the of pt's when pt became confused Kalie declined further mx e.g psych consult or imaging saying that she believes the confusion is worsened by change of environment and should improve when pt returns home to familiar environment. Bladder obstruction: Pt had no complaints of dysuria but bladder obstruction was noted on CT Leukocytosis: WBC at presentation was 15.9. There were no signs of infection and it resolved. Minutes to complete discharge: 40 Discharge Summary Reason For Visit: HEMOPERITONEUM Current Active Problems Elevated troponin (Acute) Fall from ground level (Acute) Hemoperitoneum (Acute) Memory impairment (Acute) Condition: Improved - Instructions Diet, Activity, Other Instructions: You were admitted after a fall where you hit the right side of your abdomen You were noted to have swelling of the tissues around the right side of your abdomen that has gotten better A mass was also identified in your adrenal gland You need to follow up with your primary care doctor for the mass on your adrenal gland Continue to take tylenol for pain. Do not exceed 1g in 4hrs or more than 4g in a 24hr period Do not take medications like motin or advil for the pain at this time, to prevent an increased risk of bleeding Your blood pressure was very high when you came in and we started you on medications to control your blood pressure - Tabs lopressor 25mg twice a day by mouth Take the medications everyday as prescribed You were also found to have leakage of enzymes from your heart with some change in function noted on EKG You had an ECHO that showed normal function of your heart You had a stress test done which shows normal mycocardium perfusion. You were also noted to be extremely forgetful, confused and wandering around Your family noted that you have been confused in the past and your family was not willing at this time for further tests or change in your living conditions ( senior living or home health aide) You need to be directly observed/watched around the clock You are not to operate any machinery, drive, cook, or iron You are not to be left alone with children Someone in the house needs to be dedicated to administer your medication to you If you think your symptoms are getting worse, with worsening abdominal pain despite medication, chest pain or shortness of breath, please return to the emergency room Referrals: Tennille Forte MD [Primary Care Provider] - 1 Week Disposition: HOME - Home Medications Comprehensive Discharge Medication List: Ambulatory Orders Metoprolol Tartrate [Lopressor -] 25 mg PO BID 30 Days #60 tablet 03/16/18 This patient is new to me today: No Emergency Visit: Yes ED Registration Date: 03/11/18 Care time: The patient presented to the Emergency Department on the above date and was hospitalized for further evaluation of their emergent condition. Critical Care patient: No - Discharge Referral Referred to [facility] No
[2018-03-16 19:28] VITALS: BP 134/63; TEMP 98.2
== END 2018-03-16 17:15 | disposition home or self-care (01) | DRG 644 ==
LOC: JER 10:58 → JICU 17:57 → J4W 03-13 13:10
PROVIDERS: ADMIT Hospitalist; ATTEND Internal Medicine
DX: S37.812A Contusion of adrenal gland, initial encounter (principal); E87.2 Acidosis; I24.8 Other forms of acute ischemic heart disease; I16.0 Hypertensive urgency; E27.8 Other specified disorders of adrenal gland; I10 Essential (primary) hypertension; D72.829 Elevated white blood cell count, unspecified; W01.190A Fall on same level from slipping, tripping and stumbling with subsequent striking against furniture, initial encounter; Y93.89 Activity, other specified; Y92.038 Other place in apartment as the place of occurrence of the external cause; Y99.8 Other external cause status; R41.3 Other amnesia; E87.6 Hypokalemia; Z91.81 History of falling
CPT/HCPCS: 36415; 71045-TC-FY; 74177-TC; 78452-TC; 80048; 80053; 80061; 81003; 81015; 82550; 83605; 83690; 83721; 83735; 84100; 84443; 84484; 85025; 85027; 85610; 85730; 86850; 86900; 86901; 90688; 93005; 93010; 93017; 93306-TC; 97116-GP; 97161-GP; 99283-25; A9502; G0008; J2785; J7030; Q0162

== ENCOUNTER 2021-06-20 10:00 | Inpatient (IN) | payer OTHER ==
[2021-06-20 12:11] LABS: BASO % 0.2 % (0-2.0); EOS % 0.2 % (0-4.5); HEMATOCRIT 40.8 % (32.4-45.2); HEMOGLOBIN 13.6 GM/dL (10.7-15.3); LYMPH % 11.4 % (8-40); MCH 32.5 pg (25.7-33.7); MCHC 33.3 g/dl (32.0-36.0); MEAN CELL VOLUME 97.6 fl (80-96); MONO % 4.6 % (3.8-10.2); NEUT % 83.6 % (42.8-82.8); PLATELET COUNT 108 10^3/uL (134-434); RBC 4.18 M/mm3 (3.60-5.2); RDW 14.7 % (11.6-15.6); WHITE BLOOD COUNT 9.9 K/mm3 (4.0-10.0)
[2021-06-20 12:12] LABS: INR 1.04 (0.83-1.09); PROTHROMBIN TIME (PATIENT) 12.8 SEC (9.7-13.0)
[2021-06-20 12:15] LABS: ACTIVATED PTT 22.2 SECONDS (25.2-36.5)
[2021-06-20 12:24] LABS: CHLORIDE 119 mmol/L (98-107); SODIUM 150 mmol/L (136-145)
[2021-06-20 12:26] LABS: CALCIUM 8.9 mg/dL (8.5-10.1)
[2021-06-20 12:27] LABS: ALBUMIN 3.4 g/dl (3.4-5.0); ANION GAP 5 MMOL/L (8-16); BLOOD UREA NITROGEN 28.7 mg/dL (7-18); CO2 26 mmol/L (21-32); GLUCOSE,RANDOM 93 mg/dL (74-106); MAGNESIUM 2.6 mg/dL (1.8-2.4)
[2021-06-20 12:30] LABS: CREATININE 0.5 mg/dL (0.55-1.3); SGOT/AST 26 U/L (15-37); SGPT/ALT 8 U/L (13-61)
[2021-06-20 12:32] LABS: BILIRUBIN,TOTAL 0.6 mg/dL (0.2-1); TOT PROT 6.5 g/dl (6.4-8.2)
[2021-06-20 12:33] LABS: ALK PHOS 72 U/L (45-117)
[2021-06-20] MEDS ORDERED: ACETAMINOPHEN 325 MG TABLET (FP) PO PRN (15:09)
[2021-06-20 15:42] LABS: URINE APPEARANCE CLEAR; URINE BILIRUBIN 1+ (NEGATIVE); URINE COLOR DK YELLOW; URINE GLUCOSE (UA) NEGATIVE (NEGATIVE); URINE KETONE NEGATIVE (NEGATIVE); URINE LEUK ESTERASE NEGATIVE (NEGATIVE); URINE NITRITE NEGATIVE (NEGATIVE); URINE PROTEIN NEGATIVE (NEGATIVE)
[2021-06-20] MEDS: amLODIPine BESYLATE 2.5 MG TABLET (FP) PO SCH (16:57)
[2021-06-20] MEDS: SODIUM CHLORIDE 0.45% 1,000 ML IV SCH (19:07)
[2021-06-20] MEDS: HEPARIN NA (PORCINE) 5,000 UNITS/ML 1ML VIAL SQ SCH (21:23)
[2021-06-21] MEDS: HEPARIN NA (PORCINE) 5,000 UNITS/ML 1ML VIAL SQ SCH ×2 (06:09→13:08)
[2021-06-21] MEDS: SODIUM CHLORIDE 0.45% 1,000 ML IV SCH ×2 (06:10→18:38)
[2021-06-21 08:56] LABS: HEMATOCRIT 36.3 % (32.4-45.2); HEMOGLOBIN 12.3 GM/dL (10.7-15.3); MCH 32.7 pg (25.7-33.7); MCHC 33.8 g/dl (32.0-36.0); MEAN CELL VOLUME 96.9 fl (80-96); MEAN PLT VOLUME 11.3 fl (7.5-11.1); PLATELET COUNT 83 10^3/uL (134-434); RBC 3.75 M/mm3 (3.60-5.2); RDW 14.2 % (11.6-15.6); WHITE BLOOD COUNT 5.4 K/mm3 (4.0-10.0)
[2021-06-21] MEDS: amLODIPine BESYLATE 2.5 MG TABLET (FP) PO SCH (09:07)
[2021-06-21 09:14] LABS: CALCIUM 8.2 mg/dL (8.5-10.1)
[2021-06-21 09:15] LABS: ALBUMIN 2.9 g/dl (3.4-5.0); BLOOD UREA NITROGEN 17.1 mg/dL (7-18)
[2021-06-21 09:17] LABS: CREATININE 0.3 mg/dL (0.55-1.3)
[2021-06-21 09:18] LABS: PHOSPHOROUS 2.5 mg/dL (2.5-4.9)
[2021-06-21 09:19] LABS: BILIRUBIN,TOTAL 0.4 mg/dL (0.2-1); TOT PROT 5.4 g/dl (6.4-8.2)
[2021-06-21] MEDS: KCL 10 MEQ IVPB 10 MEQ/100 ML INFUS.BAG IVPB SCH ×3 (10:00→13:08)
[2021-06-21] MEDS ORDERED: POTASSIUM CHLORIDE TABS 20 MEQ TABLET.ER (FP) PO ONE (10:28)
[2021-06-22 08:40] LABS: CALCIUM 8.1 mg/dL (8.5-10.1)
[2021-06-22 08:41] LABS: ALBUMIN 2.8 g/dl (3.4-5.0); BLOOD UREA NITROGEN 11.1 mg/dL (7-18)
[2021-06-22 08:44] LABS: CREATININE 0.4 mg/dL (0.55-1.3)
[2021-06-22 08:46] LABS: BILIRUBIN,TOTAL 0.4 mg/dL (0.2-1); TOT PROT 6.7 g/dl (6.4-8.2)
[2021-06-22] MEDS: amLODIPine BESYLATE 2.5 MG TABLET (FP) PO SCH (09:44)
[2021-06-22 12:30] LABS: BASO % 0.1 % (0-2.0); EOS % 1.1 % (0-4.5); HEMATOCRIT 38.8 % (32.4-45.2); LYMPH % 18.1 % (8-40); MCH 32.5 pg (25.7-33.7); MCHC 33.4 g/dl (32.0-36.0); MEAN CELL VOLUME 97.3 fl (80-96); MEAN PLT VOLUME 11.6 fl (7.5-11.1); MONO % 5.4 % (3.8-10.2); NEUT % 75.3 % (42.8-82.8); PLATELET COUNT 94 10^3/uL (134-434); RBC 3.99 M/mm3 (3.60-5.2); RDW 14.1 % (11.6-15.6); WHITE BLOOD COUNT 6.3 K/mm3 (4.0-10.0)
[2021-06-22] MEDS: OFLOXACIN 0.3% OPHTHALMIC SOLUTION 5 ML BOTTLE OU SCH ×3 (16:51→22:00)
[2021-06-22] MEDS: SODIUM CHLORIDE 0.45% 1,000 ML IV SCH (16:58)
[2021-06-22] MEDS ORDERED: MELATONIN 5 MG TABLETS PO PRN (22:00)
[2021-06-22 23:34] VITALS: BMI 17.3
[2021-06-23] MEDS: OFLOXACIN 0.3% OPHTHALMIC SOLUTION 5 ML BOTTLE OU SCH ×5 (06:31→21:15)
[2021-06-23] MEDS ORDERED: ACETAMINOPHEN 325 MG TABLET (FP) PO PRN (07:08)
[2021-06-23] MEDS ORDERED: SODIUM CHLORIDE 0.45% 1,000 ML IV SCH (07:08)
[2021-06-23 08:09] LABS: BLOOD UREA NITROGEN 7.2 mg/dL (7-18)
[2021-06-23 08:12] LABS: CREATININE 0.3 mg/dL (0.55-1.3)
[2021-06-23] MEDS: amLODIPine BESYLATE 2.5 MG TABLET (FP) PO SCH (09:39)
[2021-06-23] MEDS: SODIUM CHLORIDE 0.45% 1,000 ML IV SCH (14:11)
[2021-06-24] MEDS: SODIUM CHLORIDE 0.45% 1,000 ML IV SCH ×2 (00:17→14:00)
[2021-06-24] MEDS: OFLOXACIN 0.3% OPHTHALMIC SOLUTION 5 ML BOTTLE OU SCH ×3 (05:45→14:01)
[2021-06-24 07:15] LABS: HEMATOCRIT 38.3 % (32.4-45.2); HEMOGLOBIN 13.1 GM/dL (10.7-15.3); MCH 32.9 pg (25.7-33.7); MCHC 34.1 g/dl (32.0-36.0); MEAN CELL VOLUME 96.5 fl (80-96); MEAN PLT VOLUME 11.7 fl (7.5-11.1); PLATELET COUNT 77 10^3/uL (134-434); RBC 3.97 M/mm3 (3.60-5.2); RDW 14.2 % (11.6-15.6); WHITE BLOOD COUNT 8.9 K/mm3 (4.0-10.0)
[2021-06-24 07:43] LABS: CALCIUM 8.1 mg/dL (8.5-10.1)
[2021-06-24 07:44] LABS: BLOOD UREA NITROGEN 9.6 mg/dL (7-18); MAGNESIUM 2.4 mg/dL (1.8-2.4)
[2021-06-24 07:47] LABS: CREATININE 0.4 mg/dL (0.55-1.3)
[2021-06-24 07:48] LABS: PHOSPHOROUS 2.7 mg/dL (2.5-4.9)
[2021-06-24] MEDS: amLODIPine BESYLATE 2.5 MG TABLET (FP) PO SCH (10:05)
[2021-06-24 19:31] VITALS: BP 128/62; PULSE 76; TEMP 97.6
== END 2021-06-24 17:14 | DRG 641 ==
LOC: JER 10:00 → JERBED 13:43 → J6S 16:48 → J4W 06-21 16:48
PROVIDERS: ADMIT Student in an Organized Health Care Education/Training Program
DX: E87.0 Hyperosmolality and hypernatremia (principal); F03.91 Unspecified dementia, unspecified severity, with behavioral disturbance; R64 Cachexia; Z68.1 Body mass index [BMI] 19.9 or less, adult; I10 Essential (primary) hypertension; E78.5 Hyperlipidemia, unspecified; R29.6 Repeated falls; E86.0 Dehydration; E87.6 Hypokalemia; R35.0 Frequency of micturition; S00.11XA Contusion of right eyelid and periocular area, initial encounter; W19.XXXA Unspecified fall, initial encounter; Y93.9 Activity, unspecified; Y92.89 Other specified places as the place of occurrence of the external cause; Y99.9 Unspecified external cause status
CPT/HCPCS: 36415; 70450-TC; 70480-TC; 71046-TC-FY; 72125-TC; 72170-TC-FY; 80048; 80053; 81003; 82550; 82607; 83735; 84100; 84443; 84484; 85025; 85027; 85610; 85730; 86780; 86850; 86900; 86901; 87086; 93005; 93010; 93306-TC; 93880-TC; 97116-GP; 97161-GP; 99285-25; C9803; J1644; U0003; U0005

== ENCOUNTER 2023-01-15 17:44 | Inpatient (IN) | payer OTHER ==
[2023-01-15] MEDS ORDERED: ACETAMINOPHEN 1000 MG/100 ML BAG IVPB ONE (18:02)
[2023-01-15] MEDS ORDERED: ACETAMINOPHEN INJECTION 100 ML IVPB ONE (18:05)
[2023-01-15 18:13] VITALS: BMI 23.0
[2023-01-15 18:25] LABS: BASO % 0.2 % (0-2.0); EOS % 1.3 % (0-4.5); HEMATOCRIT 34.9 % (32.4-45.2); HEMOGLOBIN 11.9 GM/dL (10.7-15.3); LYMPH % 15.7 % (8-40); MCH 30.9 pg (25.7-33.7); MEAN PLT VOLUME 10.8 fl (7.5-11.1); MONO % 7.6 % (3.8-10.2); NEUT % 75.2 % (42.8-82.8); PLATELET COUNT 120 10^3/uL (134-434); RBC 3.84 M/mm3 (3.60-5.2); RDW 14.7 % (11.6-15.6); WHITE BLOOD COUNT 12.2 K/mm3 (4.0-10.0)
[2023-01-15 18:33] LABS: INR 1.17 (0.83-1.09); PROTHROMBIN TIME (PATIENT) 13.5 SEC (9.7-13.0)
[2023-01-15 18:36] LABS: ACTIVATED PTT 25.8 SECONDS (25.2-36.5)
[2023-01-15 18:42] LABS: BLOOD UREA NITROGEN 31.8 mg/dL (7-18); CALCIUM 9.2 mg/dL (8.5-10.1); MAGNESIUM 2.3 mg/dL (1.8-2.4)
[2023-01-15 18:45] LABS: CREATININE 0.5 mg/dL (0.55-1.3)
[2023-01-15 18:46] LABS: PHOSPHOROUS 2.6 mg/dL (2.5-4.9)
[2023-01-15 18:47] LABS: BILIRUBIN,TOTAL 0.3 mg/dL (0.2-1); TOT PROT 6.7 g/dl (6.4-8.2)
[2023-01-15] MEDS ORDERED: SODIUM CHLORIDE 1,000 ML IV SCH (21:00)
[2023-01-15 23:31] LABS: EPI CELLS 20 /uL (0-25.1); HYALINE CASTS 4 /uL (0-3.1); PH,URINE 5.5 (5.0-8.0); URINE APPEARANCE CLOUDY; URINE BACTERIA >9,000 /uL (0-1359); URINE BILIRUBIN NEGATIVE (NEGATIVE); URINE COLOR YELLOW; URINE GLUCOSE (UA) NEGATIVE (NEGATIVE); URINE KETONE TRACE (NEGATIVE); URINE LEUK ESTERASE NEGATIVE (NEGATIVE); URINE NITRITE POSITIVE (NEGATIVE); URINE PROTEIN TRACE (NEGATIVE); URINE RBC 56 /uL (0-23.9); URINE WBC 27 /uL (0-25.8)
[2023-01-15] MEDS ORDERED: ACETAMINOPHEN 1000 MG/100 ML BAG IVPB PRN (23:59)
[2023-01-16] MEDS ORDERED: MELATONIN 5 MG TABLETS PO PRN ×2 (07:03→15:54)
[2023-01-16 07:18] LABS: YEAST FEW (NEGATIVE)
[2023-01-16 07:39] LABS: BASO % 0.2 % (0-2.0); EOS % 2.3 % (0-4.5); HEMATOCRIT 32.7 % (32.4-45.2); HEMOGLOBIN 11.1 GM/dL (10.7-15.3); LYMPH % 13.2 % (8-40); MCH 31.3 pg (25.7-33.7); MEAN CELL VOLUME 91.9 fl (80-96); MEAN PLT VOLUME 11.3 fl (7.5-11.1); MONO % 7.5 % (3.8-10.2); NEUT % 76.8 % (42.8-82.8); PLATELET COUNT 107 10^3/uL (134-434); RBC 3.55 M/mm3 (3.60-5.2); RDW 14.5 % (11.6-15.6); WHITE BLOOD COUNT 9.1 K/mm3 (4.0-10.0)
[2023-01-16 08:00] LABS: BLOOD UREA NITROGEN 26.8 mg/dL (7-18); CALCIUM 8.5 mg/dL (8.5-10.1)
[2023-01-16 08:04] LABS: CREATININE 0.4 mg/dL (0.55-1.3)
[2023-01-16] MEDS ORDERED: MULTIVITAMINS (DAILY MVI) TABLET (FP) PO SCH (10:00)
[2023-01-16] MEDS ORDERED: amLODIPine BESYLATE 2.5 MG TABLET (FP) PO SCH (10:00)
[2023-01-16] MEDS ORDERED: PROPOFOL 20 ML ONE (13:34)
[2023-01-16] MEDS ORDERED: SUCCINYLCHOLINE CHLORIDE 200 MG/10 ML SYRINGE ONE (13:34)
[2023-01-16] MEDS ORDERED: LIDOCAINE HCL/PF 2% SDV 5ML VIAL ONE (13:34)
[2023-01-16] MEDS ORDERED: ceFAZolin SODIUM 1 GM VIAL ONE ×3 (13:40→15:04)
[2023-01-16] MEDS ORDERED: D5-1/2NS+10 MEQ KCL - 10 MEQ/1,000 ML INFUS.BAG IV SCH ×2 (14:00→15:54)
[2023-01-16] MEDS ORDERED: ceFAZolin SODIUM 1 GM VIAL IVPB ONE (15:03)
[2023-01-16] MEDS ORDERED: ONDANSETRON 4 MG/2 ML VIAL IVPUSH PRN (15:45)
[2023-01-16] MEDS ORDERED: LACTATED RINGERS SOLUTION 1,000 ML IV SCH ×3 (15:45→15:54)
[2023-01-16] MEDS ORDERED: ACETAMINOPHEN 1000 MG/100 ML BAG IVPB PRN (15:54)
[2023-01-16] MEDS ORDERED: ACETAMINOPHEN INJECTION 100 ML IVPB ONE (17:05)
[2023-01-16] MEDS: ACETAMINOPHEN 1000 MG/100 ML BAG IVPB PRN (17:09)
[2023-01-16] MEDS ORDERED: CEFAZOLIN 1 GM/D5W 50 ML IVPB SCH (18:00)
[2023-01-16] MEDS: SODIUM CHLORIDE 1,000 ML IV SCH ×2 (18:05→18:12)
[2023-01-16] MEDS: CEFAZOLIN 1 GM in DEXTROSE 5%-WATER - 50 ML IVPB SCH (18:07)
[2023-01-17] MEDS: CEFAZOLIN 1 GM in DEXTROSE 5%-WATER - 50 ML IVPB SCH (01:26)
[2023-01-17] MEDS: ACETAMINOPHEN 1000 MG/100 ML BAG IVPB PRN (02:09)
[2023-01-17 07:53] LABS: BASO % 0.1 % (0-2.0); EOS % 1.8 % (0-4.5); HEMATOCRIT 28.7 % (32.4-45.2); HEMOGLOBIN 9.7 GM/dL (10.7-15.3); LYMPH % 16.6 % (8-40); MCH 31.1 pg (25.7-33.7); MCHC 33.7 g/dl (32.0-36.0); MEAN CELL VOLUME 92.1 fl (80-96); MEAN PLT VOLUME 10.7 fl (7.5-11.1); MONO % 7.2 % (3.8-10.2); NEUT % 74.3 % (42.8-82.8); PLATELET COUNT 107 10^3/uL (134-434); RBC 3.12 M/mm3 (3.60-5.2); RDW 14.5 % (11.6-15.6)
[2023-01-17 08:01] LABS: CALCIUM 8.2 mg/dL (8.5-10.1)
[2023-01-17 08:02] LABS: BLOOD UREA NITROGEN 22.6 mg/dL (7-18)
[2023-01-17 08:05] LABS: CREATININE 0.4 mg/dL (0.55-1.3)
[2023-01-17] MEDS: MULTIVITAMINS (DAILY MVI) TABLET (FP) PO SCH (09:06)
[2023-01-17] MEDS: ENOXAPARIN NA (PORCINE) 40 MG/0.4 ML DISP.SYRIN SQ SCH (09:06)
[2023-01-17] MEDS ORDERED: ENOXAPARIN NA (PORCINE) 40 MG/0.4 ML DISP.SYRIN SQ SCH (10:00)
[2023-01-17] MEDS ORDERED: amLODIPine BESYLATE 2.5 MG TABLET (FP) PO SCH (10:00)
[2023-01-17] MEDS: SODIUM CHLORIDE 1,000 ML IV SCH (15:09)
[2023-01-17] MEDS: CEFTRIAXONE 1 GM in DEXTROSE 5%-WATER - 50 ML IVPB SCH (15:49)
[2023-01-18 08:16] LABS: HEMATOCRIT 26.6 % (32.4-45.2); HEMOGLOBIN 9.1 GM/dL (10.7-15.3); MCH 31.5 pg (25.7-33.7); MCHC 34.3 g/dl (32.0-36.0); MEAN CELL VOLUME 91.6 fl (80-96); PLATELET COUNT 119 10^3/uL (134-434); RBC 2.91 M/mm3 (3.60-5.2); RDW 14.6 % (11.6-15.6); WHITE BLOOD COUNT 9.4 K/mm3 (4.0-10.0)
[2023-01-18 08:37] LABS: BLOOD UREA NITROGEN 21.4 mg/dL (7-18); CALCIUM 8.4 mg/dL (8.5-10.1)
[2023-01-18 08:40] LABS: CREATININE 0.4 mg/dL (0.55-1.3)
[2023-01-18 08:42] LABS: BILIRUBIN,TOTAL 0.4 mg/dL (0.2-1); TOT PROT 5.1 g/dl (6.4-8.2)
[2023-01-18 08:52] LABS: ALBUMIN 2.1 g/dl (3.4-5.0)
[2023-01-18] MEDS: CEFTRIAXONE 1 GM in DEXTROSE 5%-WATER - 50 ML IVPB SCH (10:43)
[2023-01-18] MEDS: ENOXAPARIN NA (PORCINE) 40 MG/0.4 ML DISP.SYRIN SQ SCH (10:44)
[2023-01-18] MEDS: MULTIVITAMINS (DAILY MVI) TABLET (FP) PO SCH (10:45)
[2023-01-18] MEDS ORDERED: ACETAMINOPHEN 1000 MG/100 ML BAG IVPB PRN (16:40)
[2023-01-19 01:43] VITALS: RESP 18
[2023-01-19] MEDS: CEFTRIAXONE 1 GM in DEXTROSE 5%-WATER - 50 ML IVPB SCH (09:58)
[2023-01-19] MEDS: MULTIVITAMINS (DAILY MVI) TABLET (FP) PO SCH (09:59)
[2023-01-19] MEDS: ENOXAPARIN NA (PORCINE) 40 MG/0.4 ML DISP.SYRIN SQ SCH (09:59)
[2023-01-19 14:22] VITALS: BP 102/57; PULSE 80; TEMP 97.5
== END 2023-01-19 15:08 | DRG 481 ==
LOC: JER 17:44 → JERBED 18:35 → J4S 01-16 00:23 → OBSVTOIN 01-17 13:45
PROVIDERS: ADMIT Internal Medicine; ATTEND Internal Medicine
PROC: 0QS604Z Reposition Right Upper Femur with Internal Fixation Device, Open Approach (ICD-10-PCS; principal; 2023-01-16 16:00)
DX: S72.141A Displaced intertrochanteric fracture of right femur, initial encounter for closed fracture (principal); J84.9 Interstitial pulmonary disease, unspecified; N39.0 Urinary tract infection, site not specified; I10 Essential (primary) hypertension; B96.20 Unspecified Escherichia coli [E. coli] as the cause of diseases classified elsewhere; M85.88 Other specified disorders of bone density and structure, other site; F03.90 Unspecified dementia, unspecified severity, without behavioral disturbance, psychotic disturbance, mood disturbance, and anxiety; W18.39XA Other fall on same level, initial encounter; Y92.89 Other specified places as the place of occurrence of the external cause; Z86.73 Personal history of transient ischemic attack (TIA), and cerebral infarction without residual deficits
CPT/HCPCS: 0241U-QW; 36415; 70450-TC; 71045-TC-FY; 72125-TC; 73521-TC-FY; 73552-TC-RT-FY; 73562-TC-RT-FY; 76000-TC-FY; 80048; 80053; 81003; 82550; 82553; 83735; 84100; 84484; 85025; 85027; 85610; 85730; 86850; 86900; 86901; 87086; 87186; 93005; 93010; 94760; 97116-GP; 97161-GP; 99285-25; C1713; G0378

== ENCOUNTER 2024-09-09 20:00 | Inpatient (IN) | payer OTHER ==
[2024-09-09] MEDS ORDERED: ACETAMINOPHEN INJECTION 100 ML ONE (21:08)
[2024-09-09 21:09] LABS: VENOUS BASE EXCESS -2.7 mmol/L (-2-2); VENOUS O2 SATURATION 34.8 % (70-80); VENOUS PCO2 33.4 mmHg (38-52); VENOUS PH 7.416 (7.310-7.410)
[2024-09-09 21:13] LABS: EPI CELLS >36 /uL (0-25.1); HYALINE CASTS 15 /uL (0-3.1); PH,URINE 8.5 (5.0-8.0); URINE APPEARANCE TURBID; URINE BACTERIA >9,000 /uL (0-1359); URINE BILIRUBIN 1+ (NEGATIVE); URINE COLOR DK YELLOW; URINE GLUCOSE (UA) NEGATIVE (NEGATIVE); URINE KETONE NEGATIVE (NEGATIVE); URINE LEUK ESTERASE 3+ (NEGATIVE); URINE NITRITE NEGATIVE (NEGATIVE); URINE PROTEIN 3+ (NEGATIVE); URINE WBC 4315 /uL (0-25.8)
[2024-09-09] MEDS: ACETAMINOPHEN 1000 MG/100 ML BAG IVPB ONE (21:14)
[2024-09-09 21:21] LABS: INR 1.13 (0.83-1.09)
[2024-09-09 21:26] LABS: HEMATOCRIT 39.3 % (32.4-45.2); HEMOGLOBIN 12.7 GM/dL (10.7-15.3); MCH 31.7 pg (25.7-33.7); MCHC 32.4 g/dl (32.0-36.0); MEAN CELL VOLUME 97.9 fl (80-96); MEAN PLT VOLUME 12.7 fl (7.5-11.1); PLATELET COUNT 55 10^3/uL (134-434); RBC 4.02 M/mm3 (3.60-5.2); RDW 15.5 % (11.6-15.6); WHITE BLOOD COUNT 10.2 K/mm3 (4.0-10.0)
[2024-09-09 21:42] LABS: LACTIC ACID 3.8 mmol/L (0.4-2.0)
[2024-09-09] MEDS ORDERED: CEFTRIAXONE 1 GM/50 ML BAG ONE (21:48)
[2024-09-09 21:50] LABS: CALCIUM 9.1 mg/dL (8.5-10.1)
[2024-09-09 21:51] LABS: ALBUMIN 2.3 g/dl (3.4-5.0); BLOOD UREA NITROGEN 40.1 mg/dL (7-18)
[2024-09-09 21:54] LABS: CREATININE 1.4 mg/dL (0.55-1.3)
[2024-09-09 21:55] LABS: BILIRUBIN,TOTAL 0.7 mg/dL (0.2-1)
[2024-09-09 21:56] LABS: TOT PROT 6.4 g/dl (6.4-8.2)
[2024-09-09] MEDS: CEFTRIAXONE 1,000 MG in DEXTROSE 5%-WATER - 50 ML IVPB ONE (21:56)
[2024-09-09] MEDS ORDERED: DEXTROSE 5%-WATER 500 ML PVC-FREE INFUS.BAG IV ONE (22:04)
[2024-09-09] MEDS: DEXTROSE 5%-0.45% SALINE 1,000 ML IV SCH (22:05)
[2024-09-09 22:08] LABS: ANISOCYTOSIS 0; MACROCYTOSIS 1+
[2024-09-09] MEDS: DEXTROSE 5%-WATER - 1,000 ML IV SCH (22:28)
[2024-09-09 22:46] LABS: URINE RBC 2054.7 /uL (0-23.9); YEAST NONE SEEN (NEGATIVE)
[2024-09-09] MEDS: SODIUM CHLORIDE 0.9% 500 ML INFUS.BAG IV ONE (22:57)
[2024-09-09] MEDS ORDERED: VANCOMYCIN 1 GRAM (PRE-DOCKED) 1,000 MG/250 ML BAG IVPB ONE (22:59)
[2024-09-09] MEDS ORDERED: ACETAMINOPHEN 325 MG TABLET (FP) PO PRN (23:10)
[2024-09-09] MEDS: VANCOMYCIN 1 GM PREMIX (F) 1 GM/200 ML BAG IVPB ONE (23:10)
[2024-09-10] MEDS: SODIUM CHLORIDE 0.9% 500 ML INFUS.BAG IV ONE (00:45)
[2024-09-10] MEDS: SODIUM CHLORIDE 500 ML IV STA (01:43)
[2024-09-10 02:01] LABS: POTASSIUM 3.1 mmol/L (3.5-5.1)
[2024-09-10 02:04] LABS: ALBUMIN 1.8 g/dl (3.4-5.0); BLOOD UREA NITROGEN 36.4 mg/dL (7-18)
[2024-09-10 02:08] LABS: BILIRUBIN,TOTAL 0.3 mg/dL (0.2-1)
[2024-09-10 02:09] LABS: TOT PROT 4.8 g/dl (6.4-8.2)
[2024-09-10 02:18] LABS: LACTIC ACID 2.7 mmol/L (0.4-2.0)
[2024-09-10] MEDS ORDERED: HEPARIN NA (PORCINE) 5,000 UNITS/ML 1ML VIAL ONE (06:01)
[2024-09-10] MEDS: HEPARIN NA (PORCINE) 5,000 UNITS/ML 1ML VIAL SQ SCH (06:07)
[2024-09-10 06:25] LABS: HEMOGLOBIN 10.9 GM/dL (10.7-15.3); MCH 31.9 pg (25.7-33.7); MCHC 32.2 g/dl (32.0-36.0); MEAN CELL VOLUME 99.2 fl (80-96); MEAN PLT VOLUME 12.2 fl (7.5-11.1); RBC 3.43 M/mm3 (3.60-5.2); RDW 15.3 % (11.6-15.6); WHITE BLOOD COUNT 10.5 K/mm3 (4.0-10.0)
[2024-09-10 06:28] LABS: POTASSIUM 3.6 mmol/L (3.5-5.1)
[2024-09-10 06:30] LABS: CALCIUM 8.1 mg/dL (8.5-10.1)
[2024-09-10 06:31] LABS: ALBUMIN 1.9 g/dl (3.4-5.0); BLOOD UREA NITROGEN 33.5 mg/dL (7-18); MAGNESIUM 2.1 mg/dL (1.8-2.4)
[2024-09-10 06:34] LABS: CREATININE 0.9 mg/dL (0.55-1.3); PHOSPHOROUS 2.1 mg/dL (2.5-4.9)
[2024-09-10 06:35] LABS: BILIRUBIN,TOTAL 0.4 mg/dL (0.2-1)
[2024-09-10 06:36] LABS: TOT PROT 5.1 g/dl (6.4-8.2)
[2024-09-10 06:42] LABS: LACTIC ACID 2.5 mmol/L (0.4-2.0)
[2024-09-10 06:56] LABS: PLATELET COUNT 36 10^3/uL (134-434)
[2024-09-10 09:14] LABS: LACTIC ACID 2.4 mmol/L (0.4-2.0)
[2024-09-10] MEDS: FERROUS SULFATE 220 MG/5 ML ELIXIR PO SCH (09:51)
[2024-09-10] MEDS: ASCORBIC ACID 500 MG TABLET (FP) PO SCH (09:51)
[2024-09-10] MEDS: POLYETHYLENE GLYCOL (HEALTHYLAX) 3350 17 GM PACKET PO SCH (09:51)
[2024-09-10] MEDS: CHOLECALCIFEROL (VIT D3) 1,000 UNIT (25 MCG) TABLET PO SCH (09:51)
[2024-09-10 11:06] LABS: LACTIC ACID 2.1 mmol/L (0.4-2.0)
[2024-09-10] MEDS: ARTIFICIAL TEARS OPHTHALMIC DROPS OU SCH (12:00)
[2024-09-10] MEDS: POTASSIUM CHLORIDE 10 MEQ in DEXTROSE 5%-WATER - 1,000 ML IV SCH (16:04)
[2024-09-10] MEDS ORDERED: DEXTROSE 5%-WATER - 1,000 ML IV SCH (16:45)
[2024-09-10] MEDS: POTASSIUM PHOSPHATE 15 MM in SODIUM CHLORIDE 250 ML IVPB ONE (18:49)
[2024-09-10] MEDS: SENNOSIDES 8.6MG TABLET (FP) PO SCH (21:42)
[2024-09-10] MEDS: MELATONIN 5 MG TABLETS PO SCH (21:42)
[2024-09-10] MEDS: CEFTRIAXONE 1 G/50 ML PREMIX 50 ML IVPB SCH (21:42)
[2024-09-10] MEDS ORDERED: SENNOSIDES 8.6MG TABLET (FP) PO SCH (22:00)
[2024-09-11 08:31] LABS: CALCIUM 8.2 mg/dL (8.5-10.1)
[2024-09-11 08:32] LABS: ALBUMIN 1.8 g/dl (3.4-5.0); BLOOD UREA NITROGEN 16.6 mg/dL (7-18)
[2024-09-11 08:35] LABS: CREATININE 0.6 mg/dL (0.55-1.3)
[2024-09-11 08:37] LABS: BILIRUBIN,TOTAL 0.2 mg/dL (0.2-1)
[2024-09-11 08:48] LABS: TOT PROT 4.9 g/dl (6.4-8.2)
[2024-09-11] MEDS: KCL 10 MEQ IVPB 10 MEQ/100 ML INFUS.BAG IVPB SCH (11:16)
[2024-09-11] MEDS: POTASSIUM CHLORIDE 10 MEQ in DEXTROSE 5%-WATER - 1,000 ML IV SCH (11:23)
[2024-09-11] MEDS: CEFTRIAXONE 2 GM-D5W BAG 2 GM/50 ML BAG IVPB SCH (16:44)
[2024-09-11 18:06] VITALS: BMI 24.4
[2024-09-12] MEDS ORDERED: CEFTRIAXONE 2 GM-D5W BAG 2 GM/50 ML BAG IVPB SCH (10:00)
[2024-09-12] MEDS: MAGNESIUM HYDROX 2400MG/30ML ORAL SUSPENSION 30 ML CUP PO PRN (10:29)
[2024-09-12 10:33] LABS: POTASSIUM 3.3 mmol/L (3.5-5.1)
[2024-09-12 10:38] LABS: ALBUMIN 1.9 g/dl (3.4-5.0); BLOOD UREA NITROGEN 8.6 mg/dL (7-18); CALCIUM 8.3 mg/dL (8.5-10.1)
[2024-09-12 10:41] LABS: CREATININE 0.5 mg/dL (0.55-1.3)
[2024-09-12 10:42] LABS: BILIRUBIN,TOTAL 0.4 mg/dL (0.2-1)
[2024-09-12 10:43] LABS: TOT PROT 5.3 g/dl (6.4-8.2)
[2024-09-12 11:38] LABS: HEMATOCRIT 35.9 % (32.4-45.2); HEMOGLOBIN 11.8 GM/dL (10.7-15.3); MCH 31.7 pg (25.7-33.7); MEAN CELL VOLUME 96.2 fl (80-96); MEAN PLT VOLUME 14.2 fl (7.5-11.1); PLATELET COUNT 40 10^3/uL (134-434); RBC 3.73 M/mm3 (3.60-5.2); RDW 14.9 % (11.6-15.6)
[2024-09-12] MEDS: KCL 10 MEQ IVPB 10 MEQ/100 ML INFUS.BAG IVPB SCH ×2 (12:08→19:04)
[2024-09-12 12:27] LABS: ANISOCYTOSIS 0; MACROCYTOSIS 0
[2024-09-12] MEDS: MEROPENEM-0.9% SODIUM CHLORIDE 1 GM/50 ML BAG IVPB SCH (13:18)
[2024-09-13 07:33] LABS: BASO % 0.2 % (0-2.0); EOS % 0.5 % (0-4.5); HEMATOCRIT 32.7 % (32.4-45.2); HEMOGLOBIN 10.8 GM/dL (10.7-15.3); LYMPH % 14.3 % (8-40); MCH 31.7 pg (25.7-33.7); MCHC 33.1 g/dl (32.0-36.0); MEAN CELL VOLUME 95.9 fl (80-96); MEAN PLT VOLUME 12.4 fl (7.5-11.1); MONO % 6.4 % (3.8-10.2); NEUT % 78.6 % (42.8-82.8); PLATELET COUNT 51 10^3/uL (134-434); RBC 3.41 M/mm3 (3.60-5.2); RDW 14.6 % (11.6-15.6); WHITE BLOOD COUNT 8.9 K/mm3 (4.0-10.0)
[2024-09-13 07:55] LABS: POTASSIUM 3.7 mmol/L (3.5-5.1)
[2024-09-13 08:01] LABS: ALBUMIN 1.8 g/dl (3.4-5.0)
[2024-09-13 08:04] LABS: CREATININE 0.6 mg/dL (0.55-1.3)
[2024-09-13 08:05] LABS: BILIRUBIN,TOTAL 0.5 mg/dL (0.2-1); TOT PROT 5.2 g/dl (6.4-8.2)
[2024-09-14 08:36] LABS: EOS % 0.8 % (0-4.5); HEMATOCRIT 35.3 % (32.4-45.2); HEMOGLOBIN 11.4 GM/dL (10.7-15.3); LYMPH % 16.3 % (8-40); MCH 31.5 pg (25.7-33.7); MCHC 32.2 g/dl (32.0-36.0); MEAN CELL VOLUME 97.9 fl (80-96); MONO % 6.3 % (3.8-10.2); NEUT % 76.6 % (42.8-82.8); PLATELET COUNT 59 10^3/uL (134-434); RBC 3.61 M/mm3 (3.60-5.2); RDW 14.7 % (11.6-15.6); WHITE BLOOD COUNT 8.5 K/mm3 (4.0-10.0)
[2024-09-14 09:11] LABS: CALCIUM 8.4 mg/dL (8.5-10.1)
[2024-09-14 09:12] LABS: ALBUMIN 1.9 g/dl (3.4-5.0); BLOOD UREA NITROGEN 13.6 mg/dL (7-18); MAGNESIUM 2.3 mg/dL (1.8-2.4)
[2024-09-14 09:15] LABS: CREATININE 0.6 mg/dL (0.55-1.3); PHOSPHOROUS 2.4 mg/dL (2.5-4.9)
[2024-09-14 09:16] LABS: BILIRUBIN,TOTAL 0.3 mg/dL (0.2-1)
[2024-09-14 09:17] LABS: TOT PROT 5.4 g/dl (6.4-8.2)
[2024-09-14] MEDS: DEXTROSE 5%-WATER - 1,000 ML IV SCH (10:27)
[2024-09-14] MEDS: NAPH,MB-DB/K PH,MBDB POWDER PACKET PO ONE (12:45)
[2024-09-15 09:42] LABS: BASO % 0.1 % (0-2.0); EOS % 1.1 % (0-4.5); HEMATOCRIT 30.1 % (32.4-45.2); HEMOGLOBIN 9.9 GM/dL (10.7-15.3); LYMPH % 15.1 % (8-40); MCH 31.8 pg (25.7-33.7); MCHC 32.9 g/dl (32.0-36.0); MEAN CELL VOLUME 96.6 fl (80-96); MONO % 6.3 % (3.8-10.2); NEUT % 77.4 % (42.8-82.8); PLATELET COUNT 71 10^3/uL (134-434); RBC 3.11 M/mm3 (3.60-5.2); RDW 14.4 % (11.6-15.6)
[2024-09-15 10:01] LABS: POTASSIUM 3.8 mmol/L (3.5-5.1)
[2024-09-15 10:03] LABS: CALCIUM 8.1 mg/dL (8.5-10.1)
[2024-09-15 10:04] LABS: ALBUMIN 1.8 g/dl (3.4-5.0); BLOOD UREA NITROGEN 9.3 mg/dL (7-18); MAGNESIUM 2.1 mg/dL (1.8-2.4)
[2024-09-15 10:07] LABS: CREATININE 0.5 mg/dL (0.55-1.3); PHOSPHOROUS 2.1 mg/dL (2.5-4.9)
[2024-09-15 10:08] LABS: BILIRUBIN,TOTAL 0.5 mg/dL (0.2-1)
[2024-09-15 10:09] LABS: TOT PROT 5.2 g/dl (6.4-8.2)
[2024-09-15] MEDS: NAPH,MB-DB/K PH,MBDB POWDER PACKET PO ONE (18:27)
[2024-09-16 08:25] LABS: HEMATOCRIT 31.6 % (32.4-45.2); HEMOGLOBIN 10.6 GM/dL (10.7-15.3); MCH 32.2 pg (25.7-33.7); MCHC 33.6 g/dl (32.0-36.0); MEAN CELL VOLUME 96.1 fl (80-96); MEAN PLT VOLUME 11.5 fl (7.5-11.1); PLATELET COUNT 89 10^3/uL (134-434); POTASSIUM 3.9 mmol/L (3.5-5.1); RBC 3.29 M/mm3 (3.60-5.2); RDW 14.3 % (11.6-15.6); WHITE BLOOD COUNT 6.7 K/mm3 (4.0-10.0)
[2024-09-16 08:33] LABS: ALBUMIN 1.9 g/dl (3.4-5.0)
[2024-09-16 08:34] LABS: BLOOD UREA NITROGEN 7.7 mg/dL (7-18)
[2024-09-16 08:35] LABS: CALCIUM 8.2 mg/dL (8.5-10.1)
[2024-09-16 08:36] LABS: MAGNESIUM 2.2 mg/dL (1.8-2.4)
[2024-09-16 08:37] LABS: CREATININE 0.5 mg/dL (0.55-1.3)
[2024-09-16 08:38] LABS: BILIRUBIN,TOTAL 0.6 mg/dL (0.2-1); TOT PROT 5.7 g/dl (6.4-8.2)
[2024-09-16 08:39] LABS: PHOSPHOROUS 2.5 mg/dL (2.5-4.9)
[2024-09-16 20:35] VITALS: RESP 17
[2024-09-17 22:43] VITALS: BP 138/57; PULSE 72; TEMP 98.6
== END 2024-09-18 01:04 | DRG 871 ==
LOC: JER 20:00 → JERBED 22:10 → J4W 09-10 19:40 → J4S 09-12 15:26
PROVIDERS: ADMIT Internal Medicine; ATTEND Internal Medicine
DX: A41.89 Other specified sepsis (principal); R53.2 Functional quadriplegia; E87.0 Hyperosmolality and hypernatremia; N17.9 Acute kidney failure, unspecified; E87.20 Acidosis, unspecified; N39.0 Urinary tract infection, site not specified; G81.91 Hemiplegia, unspecified affecting right dominant side; I24.89 Other forms of acute ischemic heart disease; F02.80 Dementia in other diseases classified elsewhere, unspecified severity, without behavioral disturbance, psychotic disturbance, mood disturbance, and anxiety; R65.20 Severe sepsis without septic shock; D69.6 Thrombocytopenia, unspecified; E87.6 Hypokalemia; G30.9 Alzheimer's disease, unspecified; B96.4 Proteus (mirabilis) (morganii) as the cause of diseases classified elsewhere; B95.4 Other streptococcus as the cause of diseases classified elsewhere; E86.0 Dehydration
CPT/HCPCS: 0241U-QW; 36415; 36569; 70450-TC; 71045-TC-FY; 80048; 80053; 81003; 81015; 82570; 82803; 83010; 83605; 83615; 83735; 83930; 83935; 84100; 84300; 84439; 84443; 84484; 85025; 85027; 85610; 85730; 86850; 86900; 86901; 87040; 87086; 87186; 93005; 93010; 93308; 99285-25; J0131; J1644